=== PATIENT | female | born 1970 | race Caucasian/White ===

== ENCOUNTER 2019-06-11 15:10 | Emergency (ER) | payer OTHER ==
[~2019-06-11] VITALS: Ht 167.6 cm; Wt 90.7 kg
--- OUTSIDE RECORDS SUMMARY | ~2019-06-11 | XMS | Encounter Summary ---
Demographics + + + | Address | [address] | | | [place] [address] | + + + | Home Phone | | + + + | Preferred Language | Unknown | + + + | Marital Status | | + + + | Restoration Affiliation | Unknown | + + + | Race | White | + + + | Ethnic Group | Not or | + + + Author + + + | Author | [facility] | + + + | Organization | [facility] | + + + | Address | Unknown | + + + | Phone | Unavailable | + + + Support + + +---------+ + | Name | Relationship | Address | Phone | + + +---------+ + | Vinicio Garcia | ECON | Unknown | | + + +---------+ + Care Team Providers + +------+ + | Care Dental Amalgam Processor Name | Role | Phone | + +------+ + | Kenneth Duncan DO | PCP | | + +------+ + Reason for Visit + + + | Reason | Comments | + + + | Fibromyalgia | | + + + | TPI - Trigger point | | | injection | | + + + Consultation (Routine) +--------+--------+ + + + + | Status | Reason | Specialty | Diagnoses / | Referred By | Referred To | | | | | Procedures | Contact | Contact | +--------+--------+ + + + + | Closed | | Rheumatology | | Perla, | Venkatesh | | | | | | DO Kenneth | Paulina | | | | | | [address] | [address] | | | | | | [place], | [place] | | | | | | [place] | [place] | | | | | | [address] | Mailcode: | | | | | | Phone: | [address]35 | | | | | | [phone] | Physician's | | | | | | Fax: | Pavilion | | | | | | [phone] | [place], [place] | | | | | | | [address] | | | | | | | Phone: | | | | | | | [phone] | | | | | | | Fax: | | | | | | | [phone] | +--------+--------+ + + + + Encounter Details +--------+---------+ + + + | Date | Type | Department | Care Team | Description | +--------+---------+ + + + | 11/06/ | Office | Rheumatology at | [facility] | Fibromyalgia | | 2013 | Visit | [facility] | Ward, [employer] 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 [address] | (Primary Dx); Muscle | | | | [address] | [address] | spasm; Chronic knee | | | | [place] Mailcode: | [place], [place] | pain | | | | [address] [facility] | [address] | | | | | [facility], [address] | [phone] | | | | | [place], [place] | | | | | | [address] | | | | | | [phone] | | | +--------+---------+ + + + Social History + +-------+ +--------+------+ | Tobacco Use | Types | Packs/Day | Years | Date | | | | | Used | | + +-------+ +--------+------+ | Never Smoker | | | | | + +-------+ +--------+------+ + + +---------+ + | Alcohol Use | Drinks/Week | oz/Week | Comments | + + +---------+ + | Not Asked | | | | + + +---------+ + + + + | Sex Assigned at | Date Recorded | | | | + + + | Not on file | | + + + + + + + | Job Start Date | Occupation | Industry | + + + + | Not on file | Not on file | Not on file | + + + + + + + + | Travel History | Travel Start | Travel End | + + + + + + | No recent travel history available. | + + documented as of this encounter Last Filed Vital Signs + + + + + | Vital Sign | Reading | Time Taken | Comments | + + + + + | Blood Pressure | 116/64 | 11/06/2012 10:58 AM | | | | | PDT | | + + + + + | Pulse | 82 | 11/06/2012 10:58 AM | | | | | PDT | | + + + + + | Temperature | - | - | | + + + + + | Respiratory Rate | - | - | | + + + + + | Oxygen Saturation | - | - | | + + + + + | Inhaled Oxygen | - | - | | | Concentration | | | | + + + + + | Weight | 122.9 kg (271 lb) | 11/06/2012 10:58 AM | | | | | PDT | | + + + + + | Height | 167.6 cm (5' 6") | 11/06/2012 10:58 AM | | | | | PDT | | + + + + + | Body Mass Index | 43.74 | 11/06/2012 10:58 AM | | | | | PDT | | + + + + + documented in this encounter Progress Notes Mayda Dior - 11/06/2012 11:15 AM PDTFormatting of this note might be differen t from the original. Progress Note Clinic: Rheumatology Reason for follow-up: Chief Complaint Patient presents with Fibromyalgia TPI - Trigger point injection Ms. Garcia was last seen September 28, 2011. She returns today for trigger point injections. She notes an increase in her knee pain and dysfunction. Past Medical History: Past Medical History Diagnosis Date Morbid obesity Melanoma Right arm with region lymph dissection 2006 PUD (peptic ulcer disease) Treated for H. Pylori DJD (degenerative joint disease) of knee Completed Synvisc injections Chronic headaches Myalgia Medications: Current Outpatient Prescriptions Medication Sig Cholecalciferol, Vitamin D3, (VITAMIN D3) 5,000 unit Oral tablet Take 5,000 Units by [facility] once daily. cyclobenzaprine 5 mg Oral tablet Take 5 mg by mouth two times daily. Do not use longer than 2-3 weeks. FIBER ORAL Take by mouth. GLUCOSAMINE/CHONDROITIN SULF A (GLUCOSAMINE-CHONDROITIN ORAL) Take by mouth. LYSINE ORAL Take by mouth. meloxicam 15 mg Oral tablet Take 15 mg by mouth once daily. pramipexole 0.125 mg Oral tablet Take 0.125 mg by mouth two times daily. traMADol 50 mg Oral tablet Take 50 mg by mouth two times daily. Allergies: Review of patient's allergies indicates no known allergies. Social History: Gabriel reports that she has never smoked. She does not have any smokeless tobacco history on file. She reports that she does not use illicit drugs. Family History: family history includes Arthritis in her father and mother; Cancer in her m other; Diabetes in her mother; Heart Disease in her father; Hypertension in her father; and Psychiatry in her mother. Physical Exam: BP 116/64 | Pulse 82 | Ht 1.676 m (5' 6") | Wt 122.925 kg (271 lb) | BMI 43.74 kg/(m^2) Keily n Score: 8 Rapid 3 MHAQ: 5.7 (11/06/12 1800) PAIN LEVEL: 8 (11/06/12 1800) GLOBAL ASSESSMENT: 5 (11/06/12 1800) RAPID 3: 6.23 (11/06/12 1800) Gen: Obese, NAD M/S: 6 jump points identified in the trapezii Skin: no abnormalities Neuro: normal Impression: This is a 42 y.o. female here for follow up of fibromyalgia and muscle spasm. Additional issues discussed today chronic bilateral knee pain. Functional Assessment: [facility] 09/28/2011 11/06/2012 RAPID 3 7.1 6.23 Recommendations: 1. Informed consent obtained verbally. Patient understands potential risks and benefits. 6 regions of the trapezius were injected today each with lidocaine 1% and cyanocobalamin 1.25 ml of solution was injected into each region- 3 regions on the right and 3 on the left. The injections were well tolerated with minimal bleeding. Clean bandages were applied and a war m pack was provided for the patient to use on the trip home. Her daughter was present during the procedure and is driving her home. Post-injection instructions were detailed with deni bee. She will contact me later this week through [employer] and let me know how she is doing. 2. Ms. Garcia informs me she will be seeing an orthopedist later this month for follow-up o n her chronic knee pain. She claims she was told 10 years ago she needed knee replacement a nd now feels she is ready to proceed. I encouraged her to seek a second opinion given her r elatively young age for joint replacement but did inform her effectively treating peripheral pain generators can have a tremendous impact on fibromyalgia pain by lowering the total keily n burden. We also discussed treatment options in the interim including: Lidocaine 5% patch es and topical compounded formulations (ketoprofen 10% compounded with ketamine 10% in a PLO gel for BID-TID application 60gms). 3. Return to clinic as indicated by efficacy of today's injections. [facility] [facility] Mailcode: [address] [facility] [address] [facility] [place] [address] documented in th is encounter Plan of Treatment Not on filedocumented as of this encounter Procedures + +--------+ + + + | Procedure Name | Priori | Date/Time | Associated Diagnosis | Comments | | | ty | | | | + +--------+ + + + | AK INJECT TRIGGER | Routin | 11/06/2012 | Fibromyalgia | | | POINT, 1 OR 2 | e | 12:11 PM | | | | | | PDT | | | + +--------+ + + + documented in this encounter Visit Diagnoses + + | Diagnosis | + + | Fibromyalgia - Primary Mylagia and myositis, unspecified | + + | Muscle spasm Spasm of muscle | + + | Chronic knee pain Pain in joint, lower leg | + + documented in this encounter
--- OUTSIDE RECORDS SUMMARY | ~2019-06-11 | XMS | Encounter Summary ---
Demographics + + + | Address | [address] | | | [place] [address] | + + + | Home Phone | | + + + | Preferred Language | Unknown | + + + | Marital Status | | + + + | Evangelical Affiliation | 1061 | + + + | Race | Unknown | + + + | Ethnic Group | Unknown | + + + Author + + + | Author | [facility] | | | and [place] | + + + | Organization | [facility] | | | and [place] | + + + | Address | Unknown | + + + | Phone | Unavailable | + + + Support + + +---------+ + | Name | Relationship | Address | Phone | + + +---------+ + | Vinicio Garcia | ECON | Unknown | | + + +---------+ + Care Team Providers + +------+ + | Care C Unix Developer Name | Role | Phone | + +------+ + | Kenneth Duncan DO | PCP | | + +------+ + Reason for Visit + + + | Reason | Comments | + + + | Medication Prior | Lyrica 25mg | | Authorization | | + + + | Medication Prior | Pt has question about prior auth | | Authorization | | + + + Encounter Details +--------+ + + + + | Date | Type | Department | Care Team | Description | +--------+ + + + + | 03/01/ | Telephone | [facility] | Kenneth Duncan | Medication Prior | | 2017 | | [facility] | E, DO [address] | Authorization | | | | MEDICAL [facility] [address] | [place], [place] | (Lyrica 25mg ); | | | | [address] [place], | [address] | Medication Prior | | | | [place] [address] | [phone] | Authorization (Pt | | | | [phone] | | has question about | | | | | | prior auth) | +--------+ + + + + Social History + +-------+ +--------+------+ | Tobacco Use | Types | Packs/Day | Years | Date | | | | | Used | | + +-------+ +--------+------+ | Never Smoker | | | | | + +-------+ +--------+------+ + +---+---+---+ | Smokeless Tobacco: | | | | | Never Used | | | | + +---+---+---+ + + +---------+ + | Alcohol Use | Drinks/Week | oz/Week | Comments | + + +---------+ + | No | | | | + + +---------+ + + + + | Sex Assigned at | Date Recorded | | | | + + + | Female | | + + + + + [...] + + documented as of this encounter Plan of Treatment Not on filedocumented as of this encounter Visit Diagnoses Not on filedocumented in this encounter"
--- OUTSIDE RECORDS SUMMARY | ~2019-06-11 | XMS | Encounter Summary ---
Demographics + + + | Address | [address] | | | [place] [address] | + + + | Home Phone | | + + + | Preferred Language | Unknown | + + + | Marital Status | | + + + | Rastafari Affiliation | 1061 | + + + | Race | Unknown | + + + | Ethnic Group | Unknown | + + + Author + + + | Author | [facility] | | | and [place] | + + + | Organization | [facility] | | | and [place] [...] Team Providers + +------+ + | Care Die Equipment Operator Name | Role | Phone | + +------+ + | Kenneth Duncan DO | PCP | | + +------+ + Encounter Details +--------+ + + + + | Date | Type | Department | Care Team | Description | +--------+ + + + + | 02/22/ | Abstract | [facility] | Kenneth Duncan | | | 2018 | | [facility] | E, DO [address] | | | | | MEDICAL CL[facility] [address] | [place], [place] | | | | | [address] [place], | [address] | | | | | [place] [address] | [phone] | | | | | [phone] | | | +--------+ + + + + Social [...] | + +--------+ + + + | EXTERNAL LAB: | Routin | 12/22/2016 | | Results for this | | HEMOGLOBIN A1C | e | | | procedure are in the | | | | | | results section. | + +--------+ + + + documented in this encounter Results External Lab: Hemoglobin A1c (12/22/2016) + +-------+ + + + | Component | Value | Ref Range | Performed | Pathologist | | | | | At | Signature | + +-------+ + + + | Hemoglobin | 5.6 | % | | | | A1c, | | | | | | external | | | | | + +-------+ + + + + + | Specimen | + + | Blood | + + documented in this encounter Visit Diagnoses Not on filedocumented in this encounter"
--- OUTSIDE RECORDS SUMMARY | ~2019-06-11 | XMS | Encounter Summary ---
Demographics + + + | Address | [address] | | | [place] [address] | + + + | Home Phone | | + + + | Preferred Language | Unknown | + + + | Marital Status | | + + + | Hoahaoism Affiliation | 1061 | + + + | Race | Unknown | + + + | Ethnic Group | Unknown | + + + Author + + + | Author | [facility] | | | and [place] | + + + | Organization | [facility] | | | and [...] Team Providers + +------+ + | Care Procurement Analyst Name | Role | Phone | + +------+ + | Kenneth Duncan DO | PCP | | + +------+ + Reason for Visit + + + | Reason | Comments | + + + | Medication Refill | | + + + | Medication Refill | | + + + Encounter Details +--------+--------+ + + + | Date | Type | Department | Care Team | Description | +--------+--------+ + + + | 03/14/ | Refill | [facility] | Kenneth Duncan | Medication Refill; | | 2018 | | [facility] | E, DO [address] | Medication Refill | | | | MEDICAL [facility] [address] | [place], [place] | | | | | [address] [place], | [address] | | | | | [place] [address] | [phone] | | | | | [phone] | | | +--------+--------+ + + + Social History + +-------+ [...] filedocumented as of this encounter Visit Diagnoses + + | Diagnosis | + + | Hypoglycemia Hypoglycemia, unspecified | + + documented in this encounter"
--- OUTSIDE RECORDS SUMMARY | ~2019-06-11 | XMS | Encounter Summary ---
Demographics + + + | Address | [address] | | | [place] [address] | + + + | Home Phone | | + + + | Preferred Language | Unknown | + + + | Marital Status | | + + + | Church Affiliation | 1061 | + + + | Race | Unknown | + + + | Ethnic Group | Unknown | + + + Author + + + | Author | [facility] | | | and [place] | + + + | Organization | [facility] | | | and [place] [...] Team Providers + +------+ + | Care Gate Person Name | Role | Phone | + +------+ + PCP | Unavailable | + +------+ + Encounter Details +--------+ + + + + | Date | Type | Department | Care Team | Description | +--------+ + + + + | 09/06/ | Hospital | [facility] | | | | 1998 | Encounter | [facility] | | | | | | [facility] [address] | | | | | | [place] | | | | | | [address] | | | | | | [phone] | | | +--------+ + + + + Social History + +-------+ +--------+------+ | Tobacco Use | Types | Packs/Day | Years | Date | | | | | Used | | + +-------+ +--------+------+ | Never Assessed | | | | | + +-------+ +--------+------+ + + + | Sex Assigned at [...]
--- OUTSIDE RECORDS SUMMARY | ~2019-06-11 | XMS | Encounter Summary ---
Demographics + + + | Address | [address] | | | [place] [address] | + + + | Home Phone | | + + + | Preferred Language | Unknown | + + + | Marital Status | | + + + | Zoroastrian Affiliation | 1061 | + + + | Race | Unknown | + + + | Ethnic Group | Unknown | + + + Author + + + | Author | [facility] | | | and [place] | + + + | Organization | [facility] | | | and [place] | [...] Team Providers + +------+ + | Care It Help Desk Technician Name | Role | Phone | + [...] | | | | | [address] [place], | [address] | | | | | [place] [address] | [phone] | | | | | [phone] | | | +--------+ + + + [...]
--- OUTSIDE RECORDS SUMMARY | ~2019-06-11 | XMS | Encounter Summary ---
Demographics + + + | Address | [address] | | | [place] [address] | + + + | Home Phone | | + + + | Preferred Language | Unknown | + + + | Marital Status | | + + + | Anabaptism Affiliation | 1061 | + + + | Race | Unknown | + + + | Ethnic Group | Unknown | + + + Author + + + | Author | [facility] | | | and [place] | + + + | Organization | [facility] | | | and [...] Team Providers + +------+ + | Care Foreman Shipping Department Name | Role | Phone | + +------+ + | Kenneth Duncan DO | PCP | | + +------+ + Reason for Visit + + + | Reason | Comments | + + + | Medication Prior | Lyrica 25 mg | | Authorization | | + + + Encounter Details +--------+ + + + + | Date | Type | Department | Care Team | Description | +--------+ + + + + | 04/10/ | Telephone | [facility] | Kenneth Duncan | Medication Prior | | 2018 | | [facility] | E, DO [address] | Authorization | | | | MEDICAL CLINIC [address] | [place], [place] | (Lyrica 25 mg ) | | | | [address] [place], | [address] | | | | | [place] [address] | [phone] | | | | | [phone] | | | +--------+ + + + [...]
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
--- OUTSIDE RECORDS SUMMARY | ~2019-06-11 | XMS | Encounter Summary ---
Demographics + + + | Address | [address] | | | [place] [address] | + + + | Home Phone | | + + + | Preferred Language | Unknown | + + + | Marital Status | | + + + | Lutheran Affiliation | Unknown | + + + | Race | White | + + + | Ethnic Group | Not or | + + + Author + + + | Organization | Unknown | + + + | Address | Unknown | + + + | Phone | Unavailable | + + + Support + + +---------+ + | Name | Relationship | Address | Phone | + + +---------+ + | Vinicio Garcia | ECON | Unknown | | + + +---------+ + Care Team Providers + +------+ + | Care Receiver Dispatcher Name | Role | Phone | + +------+ + PCP | Unavailable | + +------+ + Encounter Details +--------+ + + + + | Date | Type | Department | Care Team | Description | +--------+ + + + + | 04/02/ | Office | | Report, Outpatient | Progress Note | | 2004 | Visit-Trans | | Consultation | | | | cribed | | | | +--------+ + + + [...] + + documented as of this encounter Progress Notes Interface, Services Clerk In - 01/31/2005 8:35 AM PDT [id number] 04/02/2004 04/02/2004 [id number] DON Barragan Referred From and Faxed To: Alejandro Duncan M.D. Referred To: General surgery outpatient consultation. Consulting Physician: Derik Avila Consultation Date: 04/02/2004 Chief Complaint: Not dictated. Reason for Requested Consultation: The patient is referred to [facility] Department of Surgery for discussion of bariatric surgery. Her weight is 260 pounds, height of 5'6.75" tall for a BMI of 42. Consultation Findings and Recommendations: History of Present Illness: The patient first felt that she was overweight at approximately age 22 when she weight 170 pounds. She had dieted intermittently during her high school years, but in general was of normal weight until 1989. At that time she went to [facility] for six months and was able to lose approximately 25 pounds. Over time that weight was gradually regained and in 1999 she began doing water aerobics as a weight loss attempt. She also participated in the Weigh Down Program in 2001 and was able to lose about 34 pounds over three months. However, she was able to maintain that for two to three months before she regained it all. She has also participated with a dietitian for six months for a weight loss of 12 pounds, but was unable to again to maintain it for more than three months. She has intermittently used both Atkins and Slim Fast diet as well as Dexatrim, but denies any combination of phentermine-phenformin or Redux, but was on phentermine by itself along with a thyroid hormone replacement. Her obesity is associated with gastroesophageal reflux disease, hyperlipidemia, stress urinary incontinence, knee pain and lower back pain. Past Surgical History: 1. Bilateral myringotomies 1974. 2. Appendectomy 1983. 3. Reconstruction of nose 1983. 4. section 1996. Current Medications: 1. Zantac 150 mg b.i.d. 2. Ibuprofen 800 mg b.i.d. Allergies: No known drug allergies. 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 She has five children under the age of 17. She is and reports her to be supportive of her decision to proceed with surgery. She also has friends who liver nearby who will help her with the care of her children during her recovery. Habits: She has regular caffeine intake. She denies any recreational drug use. She has no history of smoking and rare alcohol consumption. Family History: Significant for father with hypertension and ulcer disease. Mother with diabetes, obesity, breast and ovarian cancer. Sister with obesity and reflux disease. Her five children, ages 17, 17, 15, 10 and 7 are all well. Review of Systems: Neurologic: She does have occasional headaches that respond to rest. She has also noted some numbness in her lower extremities, but appears to be positional, but persistent. Respiratory: She denies any history of asthma, pneumonia. She occasionally snores at night, but awakens feeling refreshed. Cardiac: She has no chest pain or chest pressure. No history of heart murmur, deep vein thrombosis or pulmonary emboli. No history of hypertension, but she has had elevated cholesterol and triglycerides. GI: She has recurrent gastroesophageal reflux disease for which she takes over the counter Zantac. She also has a remote history of gastric ulcer, but has not had any studies done recently. Bowel movements are regular; stools are without blood or melena. Genitourinary: Menstrual cycle is regular. Her has had a vasectomy as their control method. She acknowledges stress urinary incontinence. Dermatologic: She denies any intertriginous skin infections. Endocrine: No history of diabetes or gestational diabetes. Family history as noted above to be positive. Musculoskeletal: She has had knee swelling, particularly the right knee. Also severe hip and lower back pain. She relates this to her most recent gain as having worsened her discomfort. Objective: Pleasant 34-year-old woman in no distress. Weight is 260 pounds, height of 5'6.75 inches tall, BMI is 42, blood pressure 106/72, heart rate is 82. Lungs: Clear to auscultation. Cardiac: No murmurs, rubs, gallops or bruits are noted. Abdomen: Obese, soft without evidence of scarring. Positive Kim's sign. No masses palpated. HEENT: Pharynx is pink, moist without evidence of lesions. No paracervical lymphadenopathy. Thyroid is nonpalpable. Neurologic: EOMs are intact. Cranial nerves II-XII are intact. Upper extremity sock drier are equal and full bilaterally. Deep tendon reflexes are 2+ in the biceps and patella. Abdominal ultrasound results from 01/21/99 shows a 5mm in diameter active peptic ulcer crater in the duodenal bulb. Study was repeated on 03/24/99 indicating a lack of a discreet crater on upper GI. Most recent lab results from last year for 2002 were unremarkable. CBC and chem profile, with the exception of a cholesterol of 281 and an LDL of 206 for a cholesterol HDL ratio of 6.2. Impression and Plan: The patient meets and exceeds the NIH criteria for morbid obesity. Her obesity is associated with multiple comorbidities including gastroesophageal reflux disease, hyperlipidemia, stress urinary incontinence, knee, back and hip pain. Furthermore she has family history of hypertension, hyperlipidemia and diabetes. She has made several attempts to lose weight and in fact recently has lost ten pounds in order to prepare for surgical intervention. Unfortunately her weight loss efforts in the past have been unsustainable. Will request authorization from her insurance provider for a laparoscopic gastric bypass to be done by Donn Westfall M.D. at [facility]. In addition, prior to her surgery, it is recommended that she have an abdominal ultrasound to rule out cholelithiasis given her positive Kim sign on examination today and an EGD given her history of ulcer disease. The patient is agreeable with the above and will have the ultrasound done today, scheduling EGD through her primary card provider's office in the near future. Plan: 1. Abdominal ultrasound. 2. Patient to get updated lab tests done in the next couple of weeks with her primary care provider. 3. Schedule EGD through her primary care provider. 4. Patient will have a nutritional consult following authorization for the procedure. 5. She will arrange for a psychological evaluation in her local area. 6. The patient will contact our office if she has any questions or concerns. Derik Avila SS/[id number] P [phone] cc: Alejandro Duncan M.D. [address] [place], [place] [address] documented i n this encounter Plan of Treatment Not on filedocumented as of this encounter Visit Diagnoses Not on filedocumented in this encounter
--- OUTSIDE RECORDS SUMMARY | ~2019-06-11 | XMS | Encounter Summary ---
Demographics + + + | Address | [address] | | | [place] [address] | + + + | Home Phone | | + + + | Preferred Language | Unknown | + + + | Marital Status | | + + + | Hoahaoism Affiliation | Unknown | + + + | Race | White | + + + | Ethnic Group | Not or | + + + Author + + + | Author | [facility] | + + + | Organization | [facility] | + + + | Address | Unknown | + + + | Phone | Unavailable | + + + Support + + +---------+ + | Name | Relationship | Address | Phone | + + +---------+ + | Vinicio Garcia | ECON | Unknown | | + + +---------+ + Care Team Providers + +------+ + | Care Sponsorship Coordinator Name | Role | Phone | + +------+ + PCP | Unavailable | + +------+ + Encounter Details +--------+ + + + + | Date | Type | Department | Care Team | Description | +--------+ + + + + | 07/31/ | Results | [facility] | Nikolas, | | | 2009 | Only | Department | MD Cayden Payne | | | | | | [facility] | | | | | | [address] | | | | | | [address] | | | | | | [place], [place] | | | | | | [id number] | | | | | | | | +--------+ + + [...] | + +--------+ + + + | DERMATOPATHOLOGY(CON | Routin | 07/31/2009 | | Results for this | | SULT) | e | | | procedure are in the | | | | | | results section. | + +--------+ + + + documented in this encounter Results DERMATOPATHOLOGY(CONSULT) (07/31/2009) + + + + + + | Component | Value | Ref Range | Performed | Pathologist | | | | | At | Signature | + + + + + + | DERMATOPATH | SOURCE OF SPECIMEN:A | | [facility] | | | (CONSULT) | CONSULTATION | | DERMATOPATH | | | | CLINICAL | | OLOGY | | | | DESCRIPTION:Lt Sarah. | | | | | | upper arm, 7x4mm opaque | | | | | | erythematous firm pap, | | | | | | R/Odermatofibroma.1 | | | | | | outside slide | | | | | | ([id number]) received. | | | | | | Dear | | | | | | Di: | | | | | | Thank you for | | | | | | asking us to review | | | | | | Gabriel Garcia's left | | | | | | upper armbiopsy. As you | | | | | | indicated, there is a | | | | | | small papule | | | | | | characterized by | | | | | | aspindle cell | | | | | | proliferation in the | | | | | | upper dermis. The | | | | | | spindled nuclei areplump | | | | | | and uniform and the | | | | | | cells have eosinophilic | | | | | | cytoplasm | | | | | | formingfascicles | | | | | | interweaving haphazardly | | | | | | and in storiform | | | | | | configuration. There | | | | | | isperipheral keloidal | | | | | | collagen as well as | | | | | | epidermal hyperplasia | | | | | | withhyperpigmentation | | | | | | along the basal layer. | | | | | | | | | | | | DIAGNOSIS:DERMATOFIBROMA | | | | | | . The | | | | | | dermatofibroma extends | | | | | | to the surgical margins. | | | | | | Thank you for | | | | | | referring this | | | | | | consultation.1 slide | | | | | | ([id number]) returned to | | | | | | Dr. Sevilla. | | | | | | CRW:emr08/08/09 My | | | | | | electronic signature | | | | | | indicates that I have | | | | | | personally reviewed | | | | | | alldiagnostic slides, | | | | | | the gross and/or | | | | | | microscopic portion of | | | | | | thisreport and | | | | | | formulated the final | | | | | | diagnosis. | | | | | | Rendering Diagnostician: | | | | | | Osvaldo Mauricio Jr., | | | | | | | | | | | | TrinyPathologistElectroni | | | | | | jero Signed 08/08/2009 | | | | + + + + + + + + | Specimen | + + | Other | + + + + + + + | Performing | Address | City/State/Zipcode | Phone Number | | Organization | | | | + + + + + | [facility] | [address] | [place] [address] | | | DERMATOPATHOLOGY | [address] | | | + + + + + documented in this encounter Visit Diagnoses Not on filedocumented in this encounter"
--- OUTSIDE RECORDS SUMMARY | ~2019-06-11 | XMS | Encounter Summary ---
Demographics + + + | Address | [address] | | | [place] [address] | + + + | Home Phone | | + + + | Preferred Language | Unknown | + + + | Marital Status | | + + + | Confucianist Affiliation | Unknown | + + + | Race | White | + + + | Ethnic Group | Not or | + + + Author + + + | Author | [facility] | + + + | Organization | [facility] | + + + | Address | Unknown | + + + | Phone | Unavailable | + + + Support + + +---------+ + | Name | Relationship | Address | Phone | + + +---------+ + | Vinicio Garcia | ECON | Unknown | | + + +---------+ + Care Team Providers + +------+ + | Care Soap Mixer Name | Role | Phone | + +------+ + PCP | Unavailable | + +------+ + Encounter Details +--------+ + + + + | Date | Type | Department | Care Team | Description | +--------+ + + + + | 04/02/ | Results | [facility] | Maricarmen Mukherjee, | | | 2003 | Only | [place] [address] [place] [address] | | | | | [place] | | | | | | Mailcode: [id number] | | | | | | Phys[facility]'s J[facility]en | | | | | | [place], [place] | | | | | | [address] | | | | | | [phone] | | | +--------+ + + + [...] | + +--------+ + + + | US ABDOMEN COMPLETE | Routin | 04/02/2004 | | Results for this | | | e | 1:08 PM | | procedure are in the | | | | PDT | | results section. | + +--------+ + + + documented in this encounter Results US ABDOMEN COMPLETE (04/02/2004 1:08 PM PDT) + + + + + + | Component | Value | Ref Range | Performed | Pathologist | | | | | At | Signature | + + + + + + | US ABDOMEN | Radiologist 1: JOSE MARIA, | | | | | COMPLETE | Yanira LICEA | | | | | | Triny-Radiologist 2: | | | | | | BRIAN DIXON: US | | | | | | abdomen dated 04/02/04. | | | | | | COMPARISON: No previous | | | | | | studies available for | | | | | | comparison. CLINICAL | | | | | | DATA: 34 year old female | | | | | | preoperative gastric | | | | | | bypassevaluation. | | | | | | FINDINGS: The liver is | | | | | | slightly increased in | | | | | | echo texture without | | | | | | focallesions. The | | | | | | biliary tree is within | | | | | | normal limits. The | | | | | | commonbile duct measures | | | | | | 4 mm in diameter. The | | | | | | gallbladder | | | | | | appearsnormal. No | | | | | | gall-stones or | | | | | | sonographic findings of | | | | | | acutecholecystitis are | | | | | | present. The visualized | | | | | | portions of the pancreas | | | | | | are unremarkable. | | | | | | Thetail is not well | | | | | | visualized secondary to | | | | | | overlying bowel gas. | | | | | | Thespleen appears | | | | | | unremarkable and | | | | | | measures 12.8 cm. The | | | | | | right and left kidneys | | | | | | are normal in echo | | | | | | texture and uxdfont15.5 | | | | | | and 11.8 cm, | | | | | | respectively, with no | | | | | | abnormal mass | | | | | | orhydronephrosis. The | | | | | | aorta and IVC are | | | | | | unremarkable. No | | | | | | ascites is seen. | | | | | | IMPRESSION: Negative | | | | | | ultrasound examination | | | | | | of the abdomen. | | | | + + + + + + + + | Specimen | + + | | + + + +---------+ + + | Performing | Address | City/State/Zipcode | Phone Number | | Organization | | | | + +---------+ + + | [facility] | | | | | RADIOLOGY | | | | + +---------+ + + documented in this encounter Visit Diagnoses Not on filedocumented in this encounter"
--- OUTSIDE RECORDS SUMMARY | ~2019-06-11 | XMS | Encounter Summary ---
Demographics + + + | Address | [address] | | | [place] [address] | + + + | Home Phone | | + + + | Preferred Language | Unknown | + + + | Marital Status | | + + + | Protestant Affiliation | 1061 | + + + | Race | Unknown | + + + | Ethnic Group | Unknown | + + + Author + + + | Author | [facility] | | | and [place] | + + + | Organization | [facility] | | | and [place] [...] Team Providers + +------+ + | Care Senior Policy Analyst Name | Role | Phone | + +------+ + | Kenneth Duncan DO | PCP | | + +------+ + Reason for Visit + + + | Reason | Comments | + + + | Diabetes Mellitus | Diabetes lab reminder | | Management | | + + + Encounter Details +--------+ + + + + | Date | Type | Department | Care Team | Description | +--------+ + + + + | 06/22/ | Telephone | [facility] | Kenneth Duncan | Diabetes Mellitus | | 2018 | | [facility] | E, DO [address] | Management (Diabetes | | | | [facility] [address] | [place], [place] | lab reminder) | | | | [facility] | [address] | | | | | [place] [address] | [phone] | | | | | [phone] | | | +--------+ + + + [...]
--- OUTSIDE RECORDS SUMMARY | ~2019-06-11 | XMS | Encounter Summary ---
Demographics + + + | Address | [address] | | | [place] [address] | + + + | Home Phone | | + + + | Preferred Language | Unknown | + + + | Marital Status | | + + + | Yarsanism Affiliation | 1061 | + + + | Race | Unknown | + + + | Ethnic Group | Unknown | + + + Author + + + | Author | [facility] | | | and [place] | + + + | Organization | [facility] | | | and [place] | [...] Team Providers + +------+ + | Care Auto Body Mechanic Name | Role | Phone | + +------+ + | Kenneth Duncan DO | PCP | | + +------+ + Reason for Visit + + + | Reason | Comments | + + + | Medication Prior | Lyrica 50mg | | Authorization | | + + + Encounter Details +--------+ + + + + | Date | Type | Department | Care Team | Description | +--------+ + + + + | 03/26/ | Telephone | [facility] | Kenneth Duncan | Medication Prior | | 2019 | | [facility] | E, DO [address] | Authorization | | | | [facility] [address] | [place], [place] | (Lyrica 50mg ) | | | | [address] [place], | [address] | | | | | [place] [address] | [phone] | | | | | [phone] | | | +--------+ + + + [...]
--- OUTSIDE RECORDS SUMMARY | ~2019-06-11 | XMS | Encounter Summary ---
Demographics + + + | Address | [address] | | | [place] [address] | + + + | Home Phone | | + + + | Preferred Language | Unknown | + + + | Marital Status | | + + + | Rastafarian Affiliation | 1061 | + + + | Race | Unknown | + + + | Ethnic Group | Unknown | + + + Author + + + | Author | [facility] | | | and [place] | + + + | Organization | [facility] | | | and [place] [...] Team Providers + +------+ + | Care Production Machine Shop Supervisor Name | Role | Phone | + [...] Description | +--------+--------+ + + + | 04/23/ | Refill | [facility] | Kenneth Duncan | Medication Refill | | 2018 | | [facility] | E, DO [address] | | | | | [facility] [address] | [place], [place] | | | | [address] [place], | [address] | | | | | [place] [address] | [phone] | | | | | [phone] | | | +--------+--------+ + + + [...] | + + + | Female | 04/02/2019 12:53 PM PDT | + + + + + + [...] Mylagia and myositis, unspecified | + + documented in this encounter"
--- OUTSIDE RECORDS SUMMARY | ~2019-06-11 | XMS | Clinical Summary ---
Demographics + + + | Address | [address] | | | [place] [address] | + + + | Home Phone | | + + + | Preferred Language | Unknown | + + + | Marital Status | | + + + | Congregational Affiliation | 1061 | + + + | Race | Unknown | + + + | Ethnic Group | Unknown | + + + Author + + + | Author | [facility] | | | and Jesúsana | + + + | Organization | [facility] | | | and [...] Team Providers + +------+ + | Care Hall Porter Name | Role | Phone | + +------+ + | Kenneth Duncan DO | PCP | | + +------+ + Allergies + + + + + + | Active Allergy | Reactions | Severity | Noted | Comments | | | | | Date | | + + + + + + | Gabapentin | Other (See Comments) | | 04/03/20 | Ineffective | | | | | 19 | | + + + + + + | Latex | Rash | Low | 02/23/20 | | | | | | 18 | | + + + + + + | Tramadol | Other (See Comments) | | 04/03/20 | Ineffective | | | | | 19 | | + + + + + + Medications + + + +---------+------+------+-------+ | Medication | Sig | Dispensed | Refills | Star | End | Statu | | | | | | t | Date | s | | | | | | Date | | | + + + +---------+------+------+-------+ | cholecalciferol | Take 5,000 Units by | | 0 | | | Activ | | (VITAMIN D-3) 5000 | mouth Daily. | | | | | e | | units TABS | | | | | | | + + + +---------+------+------+-------+ | Multiple | Take by mouth | | 0 | | | Activ | | Vitamins-Minerals | Daily. | | | | | e | | (MULTIVITAMIN ADULTS | | | | | | | | PO) | | | | | | | + + + +---------+------+------+-------+ | ibuprofen (ADVIL, | Take 200 mg by mouth | | 0 | | | Activ | | MOTRIN) 200 mg | as needed for Pain. | | | | | e | | tablet | Use with Tylenol, | | | | | | | | NEEDED, roughly | | | | | | | | three times per | | | | | | | | week. | | | | | | + + + +---------+------+------+-------+ | acetaminophen | Take 650 mg by mouth | | 0 | | | Activ | | (TYLENOL) 325 mg | as needed for Pain. | | | | | e | | tablet | Use with IBU, | | | | | | | | NEEDED, roughly | | | | | | | | three times per | | | | | | | | week. | | | | | | + + + +---------+------+------+-------+ | glucose blood | Use and discard one | 300 | 3 | 09/1 | | Activ | | test strips (ONE | test strip to test | each | | 2/20 | | e | | TOUCH ULTRA TEST) | blood glucose twice | | | 19 | | | | stripIndications: | daily. Dx: E11.65 | | | | | | | Hypoglycemia | | | | | | | + + + +---------+------+------+-------+ | pregabalin | Take 1 capsule by | 180 | 2 | 10/2 | | Activ | | (LYRICA) 50 MG | mouth 2 times daily. | capsule | | 1/20 | | e | | capsuleIndications: | | | | 19 | | | | Fibromyalgia | | | | | | | + + + +---------+------+------+-------+ Active Problems + + + | Problem | Noted Date | + + + | History of seizure | 04/06/2018 | + + + | Neoplasm of uncertain behavior of skin | 04/06/2018 | + + + | Chronic pain | 02/27/2018 | + + + | Left hip pain | 02/27/2018 | + + + | Iliopsoas bursitis of left hip | 02/27/2018 | + + + | Type 2 diabetes mellitus | 02/22/2018 | + + + | Dyslipidemia | 10/09/2014 | + + + | GERD (gastroesophageal reflux disease) | 10/09/2014 | + + + | Hypertension | 10/09/2014 | + + + | Osteoarthritis of hand | 10/09/2014 | + + + | History of skin cancer | 10/09/2014 | + + + | Neoplasm of unspecified behavior of bone, soft tissue, and skin | | + + + | Hemoptysis | | + + + | Diabetes mellitus type 2, uncontrolled, without complications | | + + + | Fibromyalgia | | + + + | Hyperlipidemia | | + + + | Hypoglycemia | | + + + | Osteoarthritis, knee | | + + + | RLS (restless legs syndrome) | | + + + | Scarring, keloid | | + + + | Sacroiliitis | | + + + | Headache syndrome | | + + + Resolved Problems + + + + | Problem | Noted | Resolved | | | Date | Date | + + + + | Skin neoplasm | 04/06/20 | | | | 18 | 8 | + + + + Encounters +--------+ + + + + | Date | Type | Specialty | Care Team | Description | +--------+ + + + + | 05/23/ | Telephone | Primary Care | Kenneth Duncan | Diabetes Mellitus | | 2018 | | | E, | Management (Diabetes | | | | | | Labs Reminder) | +--------+ + + + + | 04/26/ | Telephone | Primary Care | Kenneth Duncan | Insurance | | 2018 | | | E, DO | Authorization | | | | | | (Appeal letter ) | +--------+ + + + + | 04/23/ | Refill | Primary Care | Kenneth Duncan | Medication Refill | | 2018 | | | E, DO | | +--------+ + + + + | 04/06/ | Telephone | Primary Care | Kenneth Duncan | Results (Follow Up ) | | 2018 | | | E, DO | | +--------+ + + + + | 04/04/ | Telephone | Primary Care | Idris Rhodes, | Results | | 2018 | | | DNP | | +--------+ + + + + | 04/03/ | Office | Primary Care | Kenneth Duncan | Hypertension, | | 2019 | Visit | | E, DO | unspecified type | | | | | | (Primary Dx); Well | | | | | | woman exam with | | | | | | routine | | | | | | gynecological exam; | | | | | | Fibromyalgia; Skin | | | | | | abnormalities; | | | | | | Screening mammogram, | | | | | | encounter for; | | | | | | Screening for HPV | | | | | | (human | | | | | | papillomavirus); | | | | | | Nocturia; Diabetes | | | | | | mellitus type 2, | | | | | | uncontrolled, | | | | | | without | | | | | | complications (HCC); | | | | | | Hyperlipidemia, | | | | | | unspecified | | | | | | hyperlipidemia type; | | | | | | RLS (restless legs | | | | | | syndrome); Headache | | | | | | syndrome; Encounter | | | | | | for vitamin | | | | | | deficiency | | | | | | screening; History | | | | | | of melanoma | +--------+ + + + + | 03/26/ | Telephone | Primary Care | Kenneth Duncan | Medication Prior | | 2018 | | | E, DO | Authorization | | | | | | (Lyrica 50mg ) | +--------+ + + + + | 03/14/ | Refill | Primary Care | Kenneth Duncan | Medication Refill; | | 2018 | | | E, DO | Medication Refill | +--------+ + + + + | 03/13/ | Refill | Primary Care | Kenneth Duncan | Medication Refill | | 2018 | | | E, DO | | +--------+ + + + + from Last 3 Months Family History + + +------+ + | Medical History | Relation | Name | Comments | + + +------+ + | Hypertension | Father | | | + + +------+ + | Other (see comment) | Father | | at age 69 of hypoglyceemia due to | | | | | insulin | + + +------+ + | Cancer | Mother | | breast, ovarian and neck | + + +------+ + | Diabetes | Mother | | | + + +------+ + | Diabetes | Paternal | | | | | Grandmoth | | | | | er | | | + + +------+ + | Hypertension | Paternal | | | | | Grandmoth | | | | | er | | | + + +------+ + + +------+ + + | Relation | Name | Status | Comments | + +------+ + + | Father | | | | + +------+ + + | Mother | | | | + +------+ + + | Paternal Grandmother | | | | + +------+ + + Social History + +-------+ +--------+------+ [...] recent travel history available. | + + Last Filed Vital Signs + + + + + | Vital Sign | Reading | Time Taken | Comments | + + + + + | Blood Pressure | 122/60 | 04/03/2019 1:56 PM | | | | | PDT | | + + + + + | Pulse | 70 | 04/03/2019 1:56 PM | | | | | PDT | | + + + + + | Temperature | 36.7 C (98.1 F) | 04/03/2019 1:56 PM | | | | | PDT | | + + + + + | Respiratory Rate | 16 | 04/03/2019 1:56 PM | | | | | PDT | | + + + + + | Oxygen Saturation | 98% | 04/03/2019 1:56 PM | | | | | PDT | | + + + + + | Inhaled Oxygen | - | - | | | Concentration | | | | + + + + + | Weight | 91.6 kg (202 lb) | 04/03/2019 1:56 PM | | | | | PDT | | + + + + + | Height | 168.9 cm (5' 6.5") | 04/03/2019 1:56 PM | | | | | PDT | | + + + + + | Body Mass Index | 32.12 | 04/03/2019 1:56 PM | | | | | PDT | | + + + + + Plan of Treatment + + + + + | Health Maintenance | Due Date | Last Done | Comments | + + + + + | Vaccine: | | | | | Pneumococcal 19-64 | 4 | | | | (1 of 1 - PPSV23) | | | | + + + + + | Diabetic Foot Exam | | | | | | 6 | | | + + + + + | Vaccine: | | | | | Dtap/Tdap/Td (1 - | 7 | | | | Tdap) | | | | + + + + + | Breast Cancer | | | | | Screening | 3 | | | + + + + + | Hemoglobin A1c | | 12/22/2016 | | | Screening | 7 | | | + + + + + | Colorectal Cancer | | | | | Screening | 8 | | | | (Colonoscopy) | | | | + + + + + | Vaccine: Zoster (1 | | | | | of 2) | 8 | | | + + + + + | Microalbumin | | | | | Screening | 8 | | | + + + + + | Statin Therapy | | | | | (optimal intensity) | 8 | | | + + + + + | Vaccine: Influenza | | | | | (#1) | 9 | | | + + + + + | Diabetic Eye Exam | | 02/01/2018 | | | | 0 | | | + + + + + | Primary Care | | 04/03/2019, 04/06/2018, | | | Outreach (Low Risk) | 1 | 02/27/2018 | | + + + + + | Cervical Cancer | | 04/03/2019 | | | Screening (Pap) | 4 | | | + + + + + Procedures + +--------+ + + + | Procedure Name | Priori | Date/Time | Associated Diagnosis | Comments | | | ty | | | | + +--------+ + + + | URINALYSIS WITH | Routin | 04/03/2019 | Well woman exam | Results for this | | MICROSCOPIC WITH | e | 4:00 PM | with routine | procedure are in the | | CULTURE IF INDICATED | | PDT | gynecological exam | results section. | | | | | Fibromyalgia | | | | | | Nocturia Diabetes | | | | | | mellitus type 2, | | | | | | uncontrolled, | | | | | | without | | | | | | complications (HCC) | | | | | | Hypertension, | | | | | | unspecified type | | + +--------+ + + + | PAP SMEAR | Routin | 04/03/2019 | | Results for this | | | e | 12:00 AM | | procedure are in the | | | | PDT | | results section. | + +--------+ + + + from Last 3 Months Results Urinalysis with Microscopic with Culture if Indicated (04/03/2019 4:00 PM PDT) + + + + + + | Component | Value | Ref Range | Performed | Pathologist | | | | | At | Signature | + + + + + + | Color | Yellow | Pale Yellow, | [facility] | | | | | Yellow | [facility] | [facility] | | + + + + + + | Clarity | Clear | Clear | [facility] | | | | | | [facility] | | + + + + + + | pH, Urine | 7.0 | 5.0 - 7.0 | [facility] | | | | | | [facility] | | | | [facility] | | + + + + + + | Specific | 1.005 | 1.003 - 1.030 | [facility] | | | [place] | | | [facility] | [facility] | | + + + + + + | Protein, | Negative | Negative | [facility] | | | Urine | | | [facility] | | | | [facility] | | + + + + + + | Blood, | Negative | Negative | [facility] | | | Urine | | | [facility] | [facility] | | + + + + + + | Glucose, | Normal | Normal | [facility] | | | Urine | | | [facility] | [facility] | | [facility] | | + + + + + + | Ketones, | Negative | Negative | [facility] | | | Urine | | | [facility] | [facility] | [facility] | | + + + + + + | Bilirubin, | Negative | Negative | [facility] | | | Urine | | | [facility] | [facility] | | + + + + + + | Nitrite, | Negative | Negative | [facility] | | | Urine | | | [facility] | [facility] | | [facility] | | + + + + + + | Leukocyte | Negative | Negative | [facility] | | | Esterase, | | | [facility] | | | | | | [facility] | | + + + + + + | Urobilinoge | Normal | 0-1.0 mg/dL | [facility] | | | n, Urine | | | [facility] | [facility] | | | | | | [facility] | | + + + + + + | WBC UA | 0-2 | <=5 /HPF | [facility] | | | | | | [facility] | | | | [facility] | | + + + + + + | RBC UA | None Seen | <=5 /HPF | [facility] | | | | | | [facility] | [facility] | | [facility] | | + + + + + + | SQUAMOUS | None Seen | None Seen /LPF | [facility] | | | EPITHELIAL | | | [facility] | | | | | | [facility] | | + + + + + + | BACTERIA UA | Trace (A) | None Seen /HPF | [facility] | | | | | | [facility] | [facility] | | | | | | [facility] | | + + + + + + | URINE | Urine Culture Not | | [facility] | | | COMMENT | Indicated | | [facility] | | | [facility] | | + + + + + + + + | Specimen | + + | Urine - Urine | | specimen obtained by | | clean catch | | procedure (specimen) | + + + + + + + | Performing | Address | City/State/Zipcode | Phone Number | | Organization | | | | + + + + + | [facility] | [address] | [place] [address] | [phone] | | [facility] | | | | + + + + + Pap Smear (04/03/2019 12:00 AM PDT) + + | Specimen | + + | | + + + + + | Narrative | Performed At | + + + | ORDERING PHYSICIAN: Kenneth Duncan DO PATIENT NAME: | [facility] | | Gabriel GARCIA GENDER: F : 1970 Prior | [facility] | | History: No cases found. SPECIMEN(S): Cervical/ Endocervical | | | CLINICAL HISTORY: Routine Pap Smear CYTOLOGIC INTERPRETATION: | | | Negative for intraepithelial lesion or malignancy. TECHNICAL | | | NOTES: To improve disease detection, this slide is screened using | | | automated intelligence technology. This specimen was received in a | | | vial of liquid-based fixative and was processed using thin layer Pap | | | technology. SPECIMEN ADEQUACY: Satisfactory for evaluation. | | | Endocervical and/or metaplastic are not identified. The patient's | | | menopausal status is noted. Samples from postmenopausal women with | | | an intact cervix often lack an endocervical component in pap | | | collections. Studies suggest there is no reason to advise women with a | | | normal Pap test without an endocervical component to undergo an | | | additional test merely to collect endocervical cells, (Am J Clin | | | Patho 2002;117(1) :199-7), unless clinically indicated. ADDITIONAL | | | NOTES: The Pap smear is a screening test designed to aid in the | | | detection of premalignant and malignant conditions of the uterine | | | cervix. It is not a diagnostic procedure and should not be used as the | | | sole means of detecting cervical cancer. Both false-positive and | | | false-negative reports do occur. This document contains private | | | and confidential health information by state and federal law. If you | | | have received in error, please call [phone]. PERFORMING | | | LABORATORY: Technical preparation was performed by [employer] | | | [facility], [address] [place] [address] | | | (Coppersmith Apprentice: Aristeo Leroy D.O.; [facility]#: [id number]). | | | Diagnostician: Paulo VILLALBA([facility]) [employer] Coater Electronically | | | Signed 04/06/2019 | | + + + + +---------+ + + | Performing | Address | City/State/[facility] | Phone Number | | Organization | | | | + +---------+ + + | [facility] | | | | | [facility] | | | | + +---------+ + + from Last 3 Months Insurance + +--------+ +--------+ +---------+--------+ | Payer | Benefi | Subscriber | Effect | Phone | Address | Type | | | t Plan | ID | radhika | | | | | | / | | Dates | | | | | | Group | | | | | | + +--------+ +--------+ +---------+--------+ | [employer] | [employer] | [id number] | | [phone] | | Medica | | MEDICAID HMO | HEALTH | | 019-Pr | 1 | | id | | | MDCD | | esent | | | | | | [place] | | | | | | + +--------+ +--------+ +---------+--------+ + +--------+ +--------+ + + | Guarantor Name | Accoun | Relation to | Date | Phone | Billing Address | | | t Type | Patient | of | | | | | | | | | | + +--------+ +--------+ + + | Gabriel Garcia | Person | Self [birth year] | [address] | | | al/Fam | | 1970 | [phone] | [place] [address] | | | jayson | | | 8 (Home) | | + +--------+ +--------+ + + Advance Directives + + + + + | Type | Date Recorded | Patient | Explanation | | | | Staff Air Defense Officer | | + + + + + | Power of | | | | | Hot Strip Mill Inspector | | | | + + + + + | Advance | 02/27/2018 2:13 | | | | Directive | PM | | | + + + + +
--- OUTSIDE RECORDS SUMMARY | ~2019-06-11 | XMS | Encounter Summary ---
Demographics + + + | Address | [address] | | | [place] [address] | + + + | Home Phone | | + + + | Preferred Language | Unknown | + + + | Marital Status | | + + + | Evangelical Affiliation | 1061 | + + + | Race | Unknown | + + + | Ethnic Group | Unknown | + + + Author + + + | Author | [facility] | | | and [place] | + + + | Organization | [facility] | | | and Jesúsana [...] Team Providers + +------+ + | Care Emergency Room Technician Name | Role | Phone | + +------+ + | Kenneth Duncan DO | PCP | | + +------+ + Reason for Visit + + + | Reason | Comments | + + + | Lab Order | | + + + Encounter Details +--------+ + + + + | Date | Type | Department | Care Team | Description | +--------+ + + + + | 06/15/ | Telephone | [facility] | Syeda Nichole | Lab Order | | 2018 | | [facility] | | | | | | [facility] [address] | | | | | | [address] [facility] [place], | | | | | | [place] [address] | | | | | | [phone] | | | +--------+ + + + [...] as of this encounter Plan of Treatment + +------+--------+ + + | Name | Type | Priori | Associated Diagnoses | Order Schedule | | | | ty | | | + +------+--------+ + + | Hemoglobin A1C | Lab | Routin | Diabetes mellitus | Expected: | | | | e | type 2, | 06/15/2018, Expires: | | | | | uncontrolled, | 06/15/2019 | | | | | without | | | | | | complications (HCC) | | + +------+--------+ + + documented as of this encounter Visit Diagnoses + + | Diagnosis | + + | Diabetes mellitus type 2, uncontrolled, without complications (HCC) - Primary | + + documented in this encounter"
--- OUTSIDE RECORDS SUMMARY | ~2019-06-11 | XMS | Encounter Summary ---
Demographics + + + | Address | [address] | | | [place] [address] | + + + | Home Phone | | + + + | Preferred Language | Unknown | + + + | Marital Status | | + + + | Taoist Affiliation | 1061 | + + + | Race | Unknown | + + + | Ethnic Group | Unknown | + + + Author + + + | Author | [facility] | | | and Jes[place] | + + + | Organization | [facility] | | | and Jesú[place]ana [...] Team Providers + +------+ + | Care Newspaper Clipper Name | Role | Phone | + +------+ + | Kenneth Duncan DO | PCP | | + +------+ + Reason for Visit + + + | Reason | Comments | + + + | Diabetes Mellitus | Diabetes Labs Reminder | | Management | | + + + Encounter Details +--------+ + + + + | Date | Type | Department | Care Team | Description | +--------+ + + + + | 05/23/ | Telephone | [facility] | Kenneth Duncan | Diabetes Mellitus | | 2019 | | [facility] | E, DO [address] | Management (Diabetes | | | | [facility] [address] | [place], [place] | Labs Reminder) | | | | [place], | [address] | | | | | [place] [address] | [phone] | | | | | [phone] | | | +--------+ + + + [...]
--- OUTSIDE RECORDS SUMMARY | ~2019-06-11 | XMS | Encounter Summary ---
Demographics + + + | Address | [address] | | | [place] [address] | + + + | Home Phone | | + + + | Preferred Language | Unknown | + + + | Marital Status | | + + + | Sikhism Affiliation | 1061 | + + + | Race | Unknown | + + + | Ethnic Group | Unknown | + + + Author + + + | Author | [facility] | | | and [place] | + + + | Organization | [facility] | | | and Jesú[place] [...] Team Providers + +------+ + | Care Accounts Payable Representative Name | Role | Phone | + +------+ + | Kenneth Duncan DO | PCP | | + +------+ + Reason for Visit + + + | Reason | Comments | + + + | Medication Prior | | | Authorization | | + + + Encounter Details +--------+ + + + + | Date | Type | Department | Care Team | Description | +--------+ + + + + | 04/03/ | Telephone | [facility] | Kenneth Duncan | Medication Prior | | 2017 | | [facility] | E, DO [address] | Authorization | | | | [facility]ICAL [facility] [address] | [place], [place] | | | | | [address] [place], | [address] | | | | | [place] [address] | [phone] | | | | | [phone] | | | +--------+ + + + [...]
--- OUTSIDE RECORDS SUMMARY | ~2019-06-11 | XMS | Encounter Summary ---
Demographics + + + | Address | [address] | | | [place] [address] | + + + | Home Phone | | + + + | Preferred Language | Unknown | + + + | Marital Status | | + + + | Taoist Affiliation | 1061 | + + + | Race | Unknown | + + + | Ethnic Group | Unknown | + + + Author + + + | Author | [facility] | | | and [place] | + + + | Organization | [facility] | [...] Team Providers + +------+ + | Care Wide Area Network Systems Administrator Name | Role | Phone | + +------+ + | Kenneth Duncan DO | PCP | | + +------+ + Reason for Visit + + + | Reason | Comments | + + + | Medication Refill | | | Assistance | | + + + Encounter Details +--------+ + + + + | Date | Type | Department | Care Team | Description | +--------+ + + + + | 03/15/ | Telephone | [facility] | Kenneth Duncan | Medication Refill | | 2018 | | [facility] | E, DO [address] | Assistance | | | | [facility] [address] | [place], [place] | | | | | [address] [place], | [address] | | | | | [place] [address] | [phone] | | | | | [phone] | | | +--------+ + + + [...]
--- OUTSIDE RECORDS SUMMARY | ~2019-06-11 | XMS | Encounter Summary ---
Demographics + + + | Address | [address] | | | [place] [address] | + + + | Home Phone | | + + + | Preferred Language | Unknown | + + + | Marital Status | | + + + | Church Affiliation | 1061 | + + + | Race | Unknown | + + + | Ethnic Group | Unknown | + + + Author + + + | Author | [facility] | | | and [place] | + + + | Organization | [facility] | | | and [place] [...] Team Providers + +------+ + | Care Cloth Framer Name | Role | Phone | + +------+ + | Kenneth Duncan DO | PCP | | + +------+ + Reason for Visit +---------+ + | Reason | Comments | +---------+ + | Results | | +---------+ + Encounter Details +--------+ + + + + | Date | Type | Department | Care Team | Description | +--------+ + + + + | 10// | Telephone | [facility] | Idris Rhodes, | Results | | 2019 | | [facility] | DNP [address] | | | | | MED[facility] [address] | [place] [address] | | | | | [address] [place], | [phone] | | | | | [place] [address] | | | | | | [phone] | | | +--------+ + + + [...]
--- OUTSIDE RECORDS SUMMARY | ~2019-06-11 | XMS | Encounter Summary ---
Demographics + + + | Address | [address] | | | [place] [address] | + + + | Home Phone | | + + + | Preferred Language | Unknown | + + + | Marital Status | | + + + | Mormonism Affiliation | Unknown | + + + [...] Team Providers + +------+ + | Care Lead Web Developer Name | Role | Phone | [...] as of this encounter Progress Notes Interface, Gallery Or Museum Guide In - 01/31/2005 8:35 AM PDT [id number] 04/02/2004 04/02/2004 [id number] DON Barragan Referred From and Faxed To: Alejandro Duncan M.D. Referred To: General surgery outpatient consultation. Consulting Physician: Derik Avila Consultation Date: 04/02/2004 Chief Complaint: Not dictated. Reason for Requested Consultation: The patient is referred to [facility] Department of Surgery for discussion of [...] Cranial nerves II-XII are intact. Upper extremity director of online merchandising are equal and full bilaterally. Deep tendon [...] be done by Donn Westfall M.D. at [facility]. In addition, prior to her surgery, it [...] questions or concerns. Derik Avila SS/[id number] P [phone] cc: Alejandro Duncan M.D. [address] [place], [place] [address] documented i n this encounter Plan of Treatment Not on filedocumented as of this encounter Visit Diagnoses Not on filedocumented in this encounter
--- OUTSIDE RECORDS SUMMARY | ~2019-06-11 | XMS | Clinical Summary ---
Demographics + + + | Address | [address] | | | [place] [address] | + + + | Home Phone | | + + + | Preferred Language | Unknown | + + + | Marital Status | | + + + | Tenriism Affiliation | 1061 | + + + | Race | Unknown | + + + | Ethnic Group | Unknown | + + + Author + + + | Author | [facility] | | | and Jes[place] | + + + | Organization | [facility] | | | and Jesúsana [...] Team Providers + +------+ + | Care Net Coordinator Name | Role | Phone | [...] - 1.030 | [place] | | | [place] | | | RONDE | | | [...] + + | [facility] | [address] | [place] [address] | [phone] | | HOSPITAL LABORATORY | | | | + + + + + Pap Smear (04/03/2019 12:00 AM PDT) + + | Specimen | + + | | + + + + + | Narrative | Performed At | + + + | ORDERING PHYSICIAN: Kenneth Duncan DO PATIENT NAME: | MD PATHOLOGY | | Gabriel GARCIA GENDER: F [...] | have received in error, please call [phone]. PERFORMING | | | LABORATORY: Technical preparation was performed by [employer] | | | [place], [address] [place] [address] | | | (Pipe Threading Machine Operator: Aristeo Leroy D.O.; [facility]#: [id number]). | | | Diagnostician: Paulo VILLALBA([facility]) Electrostatic Painter Electronically | | | Signed 04/06/2019 | | + + + + +---------+ + + | Performing | Address | City[facility]State[facility] | Phone Number | | Organization | [...] | [employer] | [place] | [id number] | | [phone] | | Med[employer] | | MEDICAID HMO [...] Person | Self | [birth year] | [address] | | | al/Fam | | 1970 | [phone] | [place] [address] | | | jayson | | | 8 (Home) | | + +--------+ +--------+ + + Advance Directives + + + + + | Type | Date Recorded | Patient | Explanation | | | | Wash Oil Pump Operator Helper | | + + + + + | Power of | | | | | Esl Professor | | | | + + + + + | Advance | 02/27/2018 2:13 | | | | Directive | PM | | | + + + + +
--- OUTSIDE RECORDS SUMMARY | ~2019-06-11 | XMS | Encounter Summary ---
Demographics + + + | Address | [address] | | | [place] [address] | + + + | Home Phone | | + + + | Preferred Language | Unknown | + + + | Marital Status | | + + + | Baptist Affiliation | 1061 | + + + | Race | Unknown | + + + | Ethnic Group | Unknown | + + + Author + + + | Author | [facility] | | | and Jes[place] | + + + | Organization | [facility] | | | and Jesúsana | [...] Team Providers + +------+ + | Care Media Relations Director Name | Role | Phone | + [...] Description | +--------+--------+ + + + | 03/08/ | Refill | [facility] | Odette Marinelli, CC | Medication Refill | | 2017 | | [facility] | [facility] | | | | | [facility] [address] | | | | | | [address] [place], | | | | | | [place] [address] | | | | | | [phone] | | | +--------+--------+ + + + [...]
--- OUTSIDE RECORDS SUMMARY | ~2019-06-11 | XMS | Encounter Summary ---
Demographics + + + | Address | [address] | | | [place] [address] | + + + | Home Phone | | + + + | Preferred Language | Unknown | + + + | Marital Status | | + + + | Anglican Affiliation | 1061 | + + + | Race | Unknown | + + + | Ethnic Group | Unknown | + + + Author + + + | Author | [facility] | | | and Jes[place]ana | + + + | Organization | [facility] | | | and [...] Team Providers + +------+ + | Care Commercial Lending Assistant Name | Role | Phone | + +------+ + | Kenneth Duncan DO | PCP | | + +------+ + Reason for Visit +---------+ + | Reason | Comments | +---------+ + | Results | Follow Up | +---------+ + Encounter Details +--------+ + + + + | Date | Type | Department | Care Team | Description | +--------+ + + + + | 04/06/ | Telephone | [place] [facility] | Kenneth Duncan | Results (Follow Up ) | | 2019 | | [facility] | E, DO [address] | | | | | MEDICAL CLIN[facility] [address] | [place], [place] | | | | | [address] [place], | [address] | | | | | [place] [address] | [phone] | | | | | [phone] | | | +--------+ + + + [...]
--- OUTSIDE RECORDS SUMMARY | ~2019-06-11 | XMS | Encounter Summary ---
Demographics + + + | Address | [address] | | | [place] [address] | + + + | Home Phone | | + + + | Preferred Language | Unknown | + + + | Marital Status | | + + + | Methodist Affiliation | Unknown | + + + | Race | White | + + + | Ethnic Group | Not or | + + + Author + + + | Author | [facility] | + + + | Organization | [facility] | + + + | Address | Unknown | + + + | Phone | Unavailable | + + + Support + + +---------+ + | Name | Relationship | Address | Phone | + + +---------+ + | Vinicio Garcia | ECON | Unknown | | + + +---------+ + Care Team Providers + +------+ + | Care Child Day Care Center Worker Name | Role | Phone | + [...] | | | [address] | [facility] | sleep | | | | [facility] Mailcode: | [place], [place] | | | | | [address] Physician's | [address] | | | | | [address], 4th Floor | [phone] | | | | | [place], [place] | | | | | | [address] | | | | | | [phone] | | | +--------+---------+ + + + [...] patient was referred by: Kenneth Duncan DO [facility] [address] [place] [address], . Your patient, Ms. Garcia, a 41 y.o. female, was evaluated in the [facility] o n September 28, 2011. [...] use illicit drugs. 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 Medico-Legal: No pending litigation. [...] Clinic as needed. LOUANN HOLGUIN RHEUMATOLOGY FACULTY [facility] Mailcode: [address] [facility], 4th Floor [facility] [address] documented in th is encounter Plan of Treatment Not on filedocumented as of this encounter Visit Diagnoses + + | Diagnosis | + + | Fibromyalgia Mylagia and myositis, unspecified | + + | Non-restorative sleep Other sleep disturbances | + + documented in this encounter
--- OUTSIDE RECORDS SUMMARY | ~2019-06-11 | XMS | Encounter Summary ---
Demographics + + + | Address | [address] | | | [place] [address] | + + + | Home Phone | | + + + | Preferred Language | Unknown | + + + | Marital Status | | + + + | Sabianism Affiliation | Unknown | + + + [...] Team Providers + +------+ + | Care Security Public Safety Officer Name | Role | Phone | + +------+ + PCP | Unavailable | + +------+ + Encounter Details +--------+ + + + + | Date | Type | Department | Care Team | Description | +--------+ + + + + | 12/02/ | Results | | Other, Faculty | | | 2006 | Only | | [phone] | | +--------+ + + + + [...] + + | DERMATOPATHOLOGY(CON | Routin | 12/02/2005 | | Results for this | | SULT) | e | | | procedure are in the | | | | | | results section. | + +--------+ + + + documented in this encounter Results DERMATOPATHOLOGY(CONSULT) (12/02/2005) + + + + + + | Component | Value | Ref Range | Performed | Pathologist | | | | | At | Signature | + + + + + + | DERMATOPATH | THIS IS AN ADDENDUM | | | | | (CONSULT) | REPORT SOURCE OF | | | | | | SPECIMEN:A CONSULTATION | | | | | | DIAGNOSIS:MELANOMA IN | | | | | | SITU, RIGHT ARM, IN | | | | | | ASSOCIATION WITH A | | | | | | PRE-EXISTING NEVUS, | | | | | | ANDSCAR. The melanoma | | | | | | appears to be confined | | | | | | to the epidermis (in | | | | | | situ) in thesesections | | | | | | although the dense, | | | | | | band-like, lymphocytic | | | | | | infiltrate obscuresmuch | | | | | | of the papillary dermis | | | | | | making it difficult to | | | | | | entirely | | | | | | excludesuperficial | | | | | | dermal involvement. In | | | | | | addition, the prominent | | | | | | scar suggestspreceding | | | | | | trauma such as biopsy, | | | | | | perhaps accounting for | | | | | | the clinicalpresentation | | | | | | (centrally | | | | | | hypopigmented). Is | | | | | | there history of a | | | | | | precedingbiopsy and, if | | | | | | so, is it available for | | | | | | review to further | | | | | | characterize theextent | | | | | | of the melanoma? The | | | | | | melanoma extends to | | | | | | within a millimeter or | | | | | | soof the epidermal | | | | | | surgical margins. For | | | | | | these reasons, | | | | | | additional treatmentto | | | | | | insure its complete | | | | | | removal would be | | | | | | prudent. Thank you for | | | | | | referring this | | | | | | consultation.1 slide, | | | | | | [id number] returned to | | | | | | Dr. Vásquez. CRW:mm | | | | | | 12/06/05 | | | | | | ADDENDUM:Following | | | | | | discussions with | | | | | | Fahad, the original | | | | | | slide from this | | | | | | casesupplied from his | | | | | | lab is reviewed and | | | | | | shows, in one section, a | | | | | | verysuperficial | | | | | | collection of atypical | | | | | | melanocytes immediately | | | | | | beneath theepidermis, | | | | | | apparently in the upper | | | | | | dermis, findings of | | | | | | MELANOMA, RIGHT | | | | | | ARM,MEASURING 0.25MM IN | | | | | | THICKNESS, | | | | | | NON-ULCERATED, IN | | | | | | ASSOCIATION WITH | | | | | | APRE-EXISTING NEVUS AND | | | | | | SCAR. There are some | | | | | | features suggesting the | | | | | | dermalmelanocyte | | | | | | collection may be within | | | | | | an endothelial-lined | | | | | | vessel although itis | | | | | | difficult to confirm in | | | | | | these sections. The | | | | | | melanoma extends closely | | | | | | tothe surgical margins | | | | | | and additional treatment | | | | | | to insure its | | | | | | completeremoval would be | | | | | | prudent. 2 slides | | | | | | returned to | | | | | | Fahad. | | | | | | CRW:mm12/10/05Rendering | | | | | | Diagnostician: Osvaldo | | | | | | Jose G Mauricio Jr., | | | | | | Kimberli | | | | | | jero Signed 12/10/2005 | | | | + + + + + + + + | Specimen | + + | | + + + + + | Narrative | Performed At | + + + | Ordered by Fahad Jackson MD | | + + + + + + + + | Performing | Address | City/State/Zipcode | Phone Number | | Organization | | | | + + + + + | [facility] | [address] | [place] [address] | | | DERMATOPATHOLOGY | Roberto Lee | | | + + + + + documented in this encounter Visit Diagnoses Not on filedocumented in this encounter"
--- OUTSIDE RECORDS SUMMARY | ~2019-06-11 | XMS | Encounter Summary ---
Demographics + + + | Address | [address] | | | [place] [address] | + + + | Home Phone | | + + + | Preferred Language | Unknown | + + + | Marital Status | | + + + | Restorationist Affiliation | 1061 | + + + | Race | Unknown | + + + | Ethnic Group | Unknown | + + + Author + + + | Author | [facility] | | | and Jesú[place] | + + + | Organization | [facility] | | | and [...] Team Providers + +------+ + | Care Vessel Welder Name | Role | Phone | + [...] Lab Order | | 2018 | | [facility] | | | | | | MEDICAL CLINIC [address] | | | | | | [address] [facility] [place], | | | | | | [place] [address] | | | | | | [phone] | | | +--------+ + + + [...]
--- OUTSIDE RECORDS SUMMARY | ~2019-06-11 | XMS | Encounter Summary ---
Demographics + + + | Address | [address] | | | [place] [address] | + + + | Home Phone | | + + + | Preferred Language | Unknown | + + + | Marital Status | | + + + | Presybeterian Affiliation | 1061 | + + + | Race | Unknown | + + + | Ethnic Group | Unknown | + + + Author + + + | Author | [facility] | | | and [place] | + + + | Organization | [facility] | | | and Jesúsana [...] Providers + +------+ + | Care Dental Lab Technician Name | Role | Phone | + +------+ + PCP | Unavailable | + +------+ + Encounter Details +--------+ + + + + | Date | Type | Department | Care Team | Description | +--------+ + + + + | 10/23/ | Hospital | [facility] | | | | 1995 | Encounter | [facility] | | | | | | CENTER [address] | | | | | | [place] | | | | | | [address] | | | | | | [phone] | | | +--------+ + + + [...]
--- OUTSIDE RECORDS SUMMARY | ~2019-06-11 | XMS | Encounter Summary ---
Demographics + + + | Address | [address] | | | [place] [address] | + + + | Home Phone [...] | + + + | Organization | [facility] | | | and Jesúsana [...] Team Providers + +------+ + | Care Weighmaster Name | Role | Phone | + +------+ + | Kenneth Dnucan DO | PCP | | + +------+ [...] ) | | 2019 | | [facility] | E, DO [address] | | | | | MEDICAL CLIN[address] | [place], [place] | | | | | [address] [place], | [address] | | | | | [place] [address] | [phone] | | | | | [phone] | | | +--------+ + + + [...]
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
--- OUTSIDE RECORDS SUMMARY | ~2019-06-11 | XMS | Encounter Summary ---
Demographics + + + | Address | [address] | | | [place] [address] | + + + | Home Phone | | + + + | Preferred Language | Unknown | + + + | Marital Status | | + + + | Orthodoxy Affiliation | Unknown | + + + [...] Team Providers + +------+ + | Care Outside Installation Machinist Name | Role | Phone | + [...] as of this encounter Progress Notes Interface, Stock Mover In - 01/31/2005 8:35 AM PDT [id number] 04/02/2004 04/02/2004 [id number] DON Barragan Referred From and Faxed To: [facility] Referred To: [facility] Consulting Physician: Miryam Hall R.D., L.D. Consultation Date: 04/02/2004 Reason for Requested Consultation: Diet consult prior to having Jasmyne-en-Y gastric bypass surgery. Documented time of visit: 1:15 until 2:20. Length of visit: 65 minutes of scuz-bt-injv consult with patient. Subjective: Patient attended public meeting March 30. States no food allergies, no food intolerance, no lactose intolerance. Provides information that she has researched this surgery for about two years. Also provides information that two to three years ago she saw a dietitian for general weight loss, but had difficulty following that plan. 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 Physical Activity: Currently, her knee joint pain is causing a lot of problems. She is thinking about starting a water exercise program. Objective: A 34-year-old female. Height if 5 feet, 6 inches, weight is 260 lb. That puts her at a body mass index of 42. Past Medical History: Please see history and physical from today, April 02, 2004. Patient has GERD. Medications: Zantac gykh-jtj-nrgosgq and supplements - she is not taking any multivitamin and mineral supplements. Assessment: Patient is here today for initial assessment for medical nutrition therapy for diet instruction prior to having gastric bypass surgery. Post Surgery Diet Education: 1. Provided visual, verbal and written information on diet progression following bariatric surgery. 2. Discussed weight loss plateaus, food journal, lifelong dietary changes. 3. Discussed importance of physical activity to maintain weight loss. 4. Behavior changes. Chew food well, eat small portions recommended to minimize stomach discomfort. Also made suggestions to fit into her work life eating plan as a mailroom supervisor. 5. Post surgery nutrition supplements discussed, including a chewable multivitamin and mineral, calcium and vitamin B12. Patient's Understanding: Patient is very receptive and interactive. I feel she understands the changes in food intake after surgery. Expected Outcome: I think patient will do very well as long as she is able to maintain diet progression, eats five to six very small meals or snacks a day, and commits to physical activity and lifelong healthful changes discussed today. Plan: Patient's goal is to lose weight and have less joint pain and be more active. 1. Read materials. 2. Practice behavior changes. Continue to slow down eating before surgery. 3. Exercise after surgery when approved by [employer] 4. Follow-up with Hitesh as needed post surgery. 5. Hitesh's business card with contact information provided. Miryam Hall R.D., LJack. SR/y09 P [phone] cc: documented i n this encounter Plan of Treatment Not on filedocumented as of this encounter Visit Diagnoses Not on filedocumented in this encounter"
--- OUTSIDE RECORDS SUMMARY | ~2019-06-11 | XMS | Encounter Summary ---
Demographics + + + | Address | [address] | | | [place] [address] | + + + | Home Phone | | + + + | Preferred Language | Unknown | + + + | Marital Status | | + + + | Sabianist Affiliation | Unknown | + + + | Race | White | + + + | Ethnic Group | Not or | + + + Author + + + | Author | [facility] | + + + | Organization | [facility] | + + + | Address | Unknown | + + + | Phone | Unavailable | + + + Support + + +---------+ + | Name | Relationship | Address | Phone | + + +---------+ + | Vinicio Garcia | ECON | Unknown | | + + +---------+ + Care Team Providers + +------+ + | Care Road Crossing Guard Name | Role | Phone | + [...] [place] | | | | | | [address] | Mailcode: | | | | | | Phone: | PV35 | | | | | | [phone] | Physician's | | | | | | Fax: | Pavilion | | | | | | [phone] | [place], [place] | | | | | | | [address] | | | | | | | Phone: | | | | | | | [phone] | | | | | | | Fax: | | | | | | | [phone] | +--------+--------+ + + + + Encounter Details +--------+---------+ + + + | Date | Type | Department | Care Team | Description | +--------+---------+ + + + | 11/06/ | Office | Rheumatology at | [facility] | Fibromyalgia | | 2013 | Visit | [facility] | Ward, RESIN MAKER [address] | (Primary Dx); Muscle | | | | [address] | [address] | spasm; Chronic knee | | | | Joslyn Maravilla Mailcode: | [place], [place] | pain | | | | [address] Physician's | [address] | | | | | [facility], [address] Floor | [phone] | | | | | [place], [place] | | | | | | [address] | | | | | | [phone] | | | +--------+---------+ + + + [...] unit Oral tablet Take 5,000 Units by [facility] once daily. cyclobenzaprine 5 mg Oral tablet [...] today chronic bilateral knee pain. Functional Assessment: [facility] 09/28/2011 11/06/2012 RAPID 3 [id number] [phone] [...] will contact me later this week through [employer] and let me know how she is [...] of today's injections. LOUANN HOLGUIN RHEUMATOLOGY FACULTY [facility] [facility] Mailcode: Op09 [facility] [address] [facility] [address] documented in th is encounter Plan of Treatment Not on filedocumented as of this encounter Procedures + +--------+ + + + | Procedure Name | Priori | Date/Time | Associated Diagnosis | Comments | | | ty | | | | + +--------+ + + + | [place] INJECT TRIGGER | Routin | 11/06/2012 | [...]
--- OUTSIDE RECORDS SUMMARY | ~2019-06-11 | XMS | Encounter Summary ---
Demographics + + + | Address | [address] | | | [place] [address] | + + + | Home Phone | | + + + | Preferred Language | Unknown | + + + | Marital Status | | + + + | Taoist Affiliation | 1061 | + + + | Race | Unknown | + + + | Ethnic Group | Unknown | + + + Author + + + | Author | [facility] | | | and Jes[place] | + + + | Organization | [facility] | | | and Jesúsana [...] Team Providers + +------+ + | Care Threading Machine Setter Name | Role | Phone | + +------+ + | Kenneth Duncan DO | PCP | | + +------+ + Reason for Visit + + + | Reason | Comments | + + + | Insurance | Appeal letter | | Authorization | | + + + Encounter Details +--------+ + + + + | Date | Type | Department | Care Team | Description | +--------+ + + + + | 04/26/ | Telephone | [place] [facility] | Kenneth Duncan | Insurance | | 2019 | | [facility] | E, DO [address] | Authorization | | | | [facility] [address] | [place], [place] | (Appeal letter ) | | | | [address] [place], | [address] | | | | | [place] [address] | [phone] | | | | | [phone] | | | +--------+ + + + [...]
--- OUTSIDE RECORDS SUMMARY | ~2019-06-11 | XMS | Encounter Summary ---
Demographics + + + | Address | [address] | | | [place] [address] | + + + | Home Phone | | + + + | Preferred Language | Unknown | + + + | Marital Status | | + + + | Scientology Affiliation | 1061 | + + + | Race | Unknown | + + + | Ethnic Group | Unknown | + + + Author + + + | Author | [facility] | | | and Jesú[place] | + + + | Organization | [facility] | | | and Jesúsana [...] Team Providers + +------+ + | Care Pulpwood Cutter Name | Role | Phone | + [...] | | [address] [place], | [address] | | | | | [place] [address] | [phone] | | | | | [phone] | | | +--------+ + + + [...]
--- OUTSIDE RECORDS SUMMARY | ~2019-06-11 | XMS | Encounter Summary ---
Demographics + + + | Address | [address] | | | [place] [address] | + + + | Home Phone | | + + + | Preferred Language | Unknown | + + + | Marital Status | | + + + | Scientologist Affiliation | 1061 | + + + | Race | Unknown | + + + | Ethnic Group | Unknown | + + + Author + + + | Author | [facility] | | | and Jesú[place] | + + + | Organization | [facility] | | | and Jesúsana [...] Team Providers + +------+ + | Care Roving Marker Name | Role | Phone | + [...] | | | [address] [place], | [address] | | | | | [place] [address] | [phone] | | | | | [phone] | | | +--------+ + + + [...]
--- OUTSIDE RECORDS SUMMARY | ~2019-06-11 | XMS | Clinical Summary ---
Demographics + + + | Address | [address] | | | [place] [address] | + + + | Home Phone | | + + + | Preferred Language | Unknown | + + + | Marital Status | | + + + | Scientologist Affiliation | Unknown | + + + | Race | White | + + + | Ethnic Group | Not or | + + + Author + + + | Author | [facility] | + + + | Organization | [facility] | + + + | Address | Unknown | + + + | Phone | Unavailable | + + + Support + + +---------+ + | Name | Relationship | Address | Phone | + + +---------+ + | Vinicio Garcia | ECON | Unknown | | + + +---------+ + Care Team Providers + +------+ + | Care Manufacturing Engineer Supervisor Name | Role | Phone | + +------+ + | Kenneth Ducnan DO | PCP | | + +------+ + Source Comments [facility] is fully live on both [facility] and [facility] InPatient.[facility] Allergies No Known Allergies Medications + + + +---------+------+------+-------+ | Medication | Sig | Dispensed | Refills | Star | End | Statu | | | | | | t | Date | s | | | | | | Date | | | + + + +---------+------+------+-------+ | meloxicam 15 mg | Take 15 mg by mouth | | 0 | | | Activ | | Oral tablet | once daily. | | | | | e | + + + +---------+------+------+-------+ | pramipexole 0.125 | Take 0.125 mg by | | 0 | | | Activ | | mg Oral tablet | mouth two times | | | | | e | | | daily. | | | | | | + + + +---------+------+------+-------+ | cyclobenzaprine 5 | Take 5 mg by mouth | | 0 | | | Activ | | mg Oral tablet | two times daily. Do | | | | | e | | | not use longer than | | | | | | | | 2-3 weeks. | | | | | | + + + +---------+------+------+-------+ | traMADol 50 mg | Take 50 mg by mouth | | 0 | | | Activ | | Oral tablet | two times daily. | | | | | e | + + + +---------+------+------+-------+ | Cholecalciferol, | Take 5,000 Units by | | 0 | | | Activ | | Vitamin D3, (VITAMIN | mouth once daily. | | | | | e | | D3) 5,000 unit Oral | | | | | | | | tablet | | | | | | | + + + +---------+------+------+-------+ | | Take by mouth. | | 0 | | | Activ | | GLUCOSAMINE/CHONDROI | | | | | | e | | TIN SULF A | | | | | | | | (GLUCOSAMINE-CHONDRO | | | | | | | | ITIN ORAL) | | | | | | | + + + +---------+------+------+-------+ | FIBER ORAL | Take by mouth. | | 0 | | | Activ | | | | | | | | e | + + + +---------+------+------+-------+ | LYSINE ORAL | Take by mouth. | | 0 | | | Activ | | | | | | | | e | + + + +---------+------+------+-------+ Active Problems + + + | Problem | Noted Date | + + + | Fibromyalgia | 11/06/2012 | + + + Family History + + +------+ + | Medical History | Relation | Name | Comments | + + +------+ + | Arthritis | Father | | | + + +------+ + | Heart Disease | Father | | | + + +------+ + | Hypertension | Father | | | + + +------+ + | Arthritis | Mother | | | + + +------+ + | Cancer | Mother | | | + + +------+ + | Diabetes | Mother | | | + + +------+ + | Psychiatry | Mother | | | + + +------+ + + +------+--------+ + | Relation | Name | Status | Comments | + +------+--------+ + | Father | | | | + +------+--------+ + | Mother | | | | + +------+--------+ + Social History + +-------+ +--------+------+ | [...] | + + + + + | Influenza (Flu) | | | | | vaccination (#1) | 9 | | | + + + + + | Pneumococcal | Aged Out | | No longer eligible | | vaccination | | | based on patient's | | | | | age to complete this | | | | | topic | + + + + + Results Not on filefrom Last 3 Months Insurance + +--------+ +--------+-------+---------+--------+ | Payer | Benefi | Subscriber | Effect | Phone | Address | Type | | | t Plan | ID | radhika | | | | | | / | | Dates | | | | | | Group | | | | | | + +--------+ +--------+-------+---------+--------+ | COMMERCIAL GROUP | COMMER | xxxxxxxxx | Effect | | | Indemn | | | CIAL | | radhika | | | ity | | | GROUP | | for | | | | | | | | all | | | | | | | | dates | | | | + +--------+ +--------+-------+---------+--------+ + +--------+ +--------+ + + | Guarantor Name | Accoun | Relation to | Date | Phone | Billing Address | | | t Type | Patient | of | | | | | | | | | | + +--------+ +--------+ + + | Radha,Dawnita Liana | Person | Self | [birth year] | [address] | | | al/José | | 1970 | [phone] | [place] [address] | | | jayson | | | 8 (Home) | | + +--------+ +--------+ + +
--- OUTSIDE RECORDS SUMMARY | ~2019-06-11 | XMS | Encounter Summary ---
Demographics + + + | Address | [address] | | | [place] [address] | + + + | Home Phone | | + + + | Preferred Language | Unknown | + + + | Marital Status | | + + + | Yazidi Affiliation | 1061 | + + + | Race | Unknown | + + + | Ethnic Group | Unknown | + + + Author + + + | Author | [facility] | | | and Jesúsana | + + + | Organization | [facility] | | | and [...] Team Providers + +------+ + | Care Piano Regulator Name | Role | Phone | + [...] Description | +--------+--------+ + + + | 05/10/ | Refill | [facility] | Kenneth Duncan | Medication Refill | | 2017 | | [facility] | E, DO [address] | | | | | MEDICAL CLIN[facility] [address] | [place], [place] | | | | | [address] [place], | [address] | | | | | [place] [address] | [phone] | | | | | [phone] | | | +--------+--------+ + + + [...]
--- OUTSIDE RECORDS SUMMARY | ~2019-06-11 | XMS | Encounter Summary ---
Demographics + + + | Address | [address] | | | [place] [address] | + + + | Home Phone | | + + + | Preferred Language | Unknown | + + + | Marital Status | | + + + | Jainism Affiliation | 1061 | + + + | Race | Unknown | + + + | Ethnic Group | Unknown | + + + Author + + + | Author | [facility] | | | and Jesúsana | + + + | Organization | [facility] | | | and [...] Team Providers + +------+ + | Care Sand Cleaning Machine Operator Name | Role | Phone | [...] Refill | | 2018 | | [facility] | E, DO [address] | | | | | MEDICAL CL[address] | [place], [place] | | | | | [address] [place], | [address] | | | | | [place] [address] | [phone] | | | | | [phone] | | | +--------+--------+ + + + [...]
--- OUTSIDE RECORDS SUMMARY | ~2019-06-11 | XMS | Encounter Summary ---
Demographics + + + | Address | [address] | | | [place] [address] | + + + | Home Phone | | + + + | Preferred Language | Unknown | + + + | Marital Status | | + + + | Cheondoism Affiliation | 1061 | + + + | Race | Unknown | + + + | Ethnic Group | Unknown | + + + Author + + + | Author | [facility] | | | and Jesúsana | + + + | Organization | [facility] | | [...] Team Providers + +------+ + | Care Wallpaper Hanger Name | Role | Phone | + +------+ + | Kenneth Duncan DO | PCP | | + +------+ + Reason for Visit + + + | Reason | Comments | + + + | Establish Care | Re-establishing care | + + + | Pain | Discuss pain management, left hip discomfort. | + + + Encounter Details +--------+---------+ + + + | Date | Type | Department | Care Team | Description | +--------+---------+ + + + | 02/27/ | Office | [facility] | Kenneth Duncan | Fibromyalgia | | 2018 | Visit | [facility] | E, DO [address] | (Primary Dx); | | | | MEDICAL CL[facility] [address] | [place], [place] | Chronic pain | | | | [address] [place], | [address] | syndrome; Left hip | | | | [place] [address] | [phone] | pain; Trochanteric | | | | [phone] | | bursitis of left | | | | | | hip; Hypoglycemia | +--------+---------+ + + + Social History [...] + + + | Blood Pressure | 120/72 | 02/27/2018 2:30 PM | | | | | PDT | | + + + + + | Pulse | 71 | 02/27/2018 2:30 PM | | | | | PDT | | + + + + + | Temperature | 36.8 C (98.3 F) | 02/27/2018 2:30 PM | | | | | PDT | | + + + + + | Respiratory Rate | 16 | 02/27/2018 2:30 PM | | | | | PDT | | + + + + + | Oxygen Saturation | 99% | 02/27/2018 2:30 PM | | | | | PDT | | + + + + + | Inhaled Oxygen | - | - | | | Concentration | | | | + + + + + | Weight | 95.3 kg (210 lb 3.2 | 02/27/2018 2:30 PM | | | | oz) | PDT | | + + + + + | Height | 168.9 cm (5' 6.5") | 02/27/2018 2:30 PM | | | | | PDT | | + + + + + | Body Mass Index | 33.42 | 02/27/2018 2:30 PM | | | | | PDT | | + + + + + documented in this encounter Progress Notes eKnneth Duncan DO - 02/27/2018 2:20 PM PDT Patient ID: Gabriel Garcia is a 48 y.o. year old female Chief Complaint: Chief Complaint Patient presents with Establish Care Re-establishing care Pain Discuss pain management, left hip discomfort. Assessment Fibromyalgia (Primary) - Pregabalin; Take 1 capsule by mouth Daily. Dispense: 30 capsule; Refill: 2 Chronic pain syndrome Left hip pain - Arthrocentesis Trochanteric bursitis of left hip Hypoglycemia - Glucose Blood; Use as directed. Dispense: 100 each; Refill: 11 Plan -Start Lyrica 25 mg daily, if not helping call and we can increase the dose -Call in 6 weeks to let me know how the Lyrica is working -Follow up 1 month, Lyrica and Injection review Subjective: HPI Gabriel presents to the clinic today to re-establish care from PFM, and discuss pain manage ment. She is experiencing more pain from her Fibromyalgia. Pain is from her head to her toes. She states it hurts to be touched or touch anything. Usually she just tries to ignore the pain. She was told 5 years ago she would probably need her left hip repaired, due to arthritis. 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 Pain is sharp and radiates down her leg. She i s having to rotate on each side while sleeping. Current Outpatient Prescriptions Medication Sig Dispense Refill acetaminophen (TYLENOL) 325 mg tablet Take 650 mg by mouth as needed for Pain. Use with IBU, NEEDED, roughly three times per week. cholecalciferol (VITAMIN D-3) 5000 units TABS Take 5,000 Units by mouth Daily. ibuprofen (ADVIL, MOTRIN) 200 mg tablet Take [...] hip pain Iliopsoas bursitis of left hip Family History Problem Relation Age of Onset Diabetes Mother Cancer Mother breast, ovarian and neck Other (see comment) Father at age 69 of hypoglyceemia due to insulin Hypertension Father Hypertension Paternal Grandmother Diabetes Paternal Grandmother Past Surgical History: Procedure Laterality Date APPENDECTOMY ARTHROSCOPIC KNEE SURGERY BILATERAL SECTION CHOLECYSTECTOMY gastric sleeve lympanostomy tubes melanoma Right Arm NOSE SURGERY ARDEN AND BSO TUBAL LIGATION Social History Social History Marital status: Spouse name: N/A Number of children: N/A Years of education: N/A Occupational History Not on file. Social History Main Topics Smoking status: Never Smoker Smokeless tobacco: Never Used Alcohol use No Drug use: No Sexual activity: Not on file Other Topics Concern Not on file Social History Narrative No narrative on file Allergies Allergen Reactions Latex Rash Review of Systems Constitutional: Negative for fatigue and fever. Respiratory: Negative for cough, chest tightness, shortness of breath and wheezing. Cardiovascular: Negative for chest pain and palpitations. Gastrointestinal: Negative for abdominal pain, nausea and vomiting. Musculoskeletal: Negative for gait problem and myalgias. Neurological: Negative for dizziness, syncope and headaches. Psychiatric/Behavioral: The patient is not nervous/anxious. Objective: Vitals: BP 120/72 | Pulse 71 | Temp 36.8 C (98.3 F) (Oral) | Resp 16 | Ht 1.689 m (5' 6.5") | Wt 95.3 kg (210 lb 3.2 oz) | SpO2 99% | BMI 33.42 kg/m Physical Exam Constitutional: She appears well-developed and well-nourished. HENT: Head: Atraumatic. Eyes: Pupils are equal, round, and reactive to light. EOM are normal. Cardiovascular: Normal rate, regular rhythm and normal heart sounds. Pulmonary/Chest: Effort normal and breath sounds normal. Abdominal: Bowel sounds are normal. Musculoskeletal: Left hip - Greater trochanter bursitis and Iliotibial band syndrome Lymphadenopathy: She has no cervical adenopathy. Neurological: She is alert. Skin: Skin is warm and dry. Psychiatric: She has a normal mood and affect. Entered by Syeda Nichole, acting as scribe for Dr. Perla DO. The documentation recorded by the scribe accurately reflects the service I personally perfo ed and the decisions made by me. Dr. Kenneth Duncan DO. 02/27/2018 15:51 Odette Prince CC CMA - 02/27/2018 2:20 PM PDTDawregina Garcia pre sents today with Chief Complaint of: Use with IBU, NEEDED, roughly three times per week. Discuss pain management, left hip discomfort. Current medications verified with her at time of visit. Pt currently shows no s/s of distress, shortness of breath. Vital signs: BP 120/72 | Pulse 71 | Temp 36.8 C (98.3 F) (Oral) | Resp 16 | Ht 1.68 9 m (5' 6.5") | Wt 95.3 kg (210 lb 3.2 oz) | SpO2 99% | BMI 33.42 kg/m Labs Obtained per protocol: None. Verbal Report given to: Kenneth Duncan DO. RD Johnston CMA documented in this encounter Plan of Treatment Not on filedocumented as of this encounter Procedures + +--------+ + + + | Procedure Name | Priori | Date/Time | Associated Diagnosis | Comments | | | ty | | | | + +--------+ + + + | [place] [id number] | Routin | 02/27/2018 | Left hip pain | Results for this | | DRAIN/INJECT | e | 2:20 PM | | procedure are in the | | JOINT/BURSA MAJOR | | PDT | | results section. | | JOINT W/O ULTRASOUND | | | | | | GUIDANCE | | | | | + +--------+ + + + documented in this encounter Results Arthrocentesis (02/27/2018 2:20 PM PDT) + + + | Narrative | Performed At | + + + | Kenneth Duncan DO 02/27/2018 16:02 PARQ Sterile technique | | | No complications and tolerated well. 0.5cc (20 [place] [address] | | | 1049 lot [id number] exp 07/2019 and 2cc 1[place] [address] 492 27 | | | LOT [id number] EXP 09/20 injected into greater trochanter of left hip. | | | | | + + + documented in this encounter Visit Diagnoses + + | Diagnosis | + + | Fibromyalgia - Primary Mylagia and myositis, unspecified | + + | Chronic pain syndrome | + + | Left hip pain Pain in joint, pelvic region and thigh | + + | Trochanteric bursitis of left hip Enthesopathy of hip region | + + | Hypoglycemia Hypoglycemia, unspecified | + + documented in this encounter
--- OUTSIDE RECORDS SUMMARY | ~2019-06-11 | XMS | Encounter Summary ---
Demographics + + + | Address | [address] | | | [place] [address] | + + + | Home Phone | | + + + | Preferred Language | Unknown | + + + | Marital Status | | + + + | Bahai Affiliation | Unknown | + + + [...] Team Providers + +------+ + | Care Lard Mixer Name | Role | Phone | [...] as of this encounter Progress Notes Interface, Manager Recruitment In - 01/31/2005 8:35 AM PDT [id number] 04/02/2004 04/02/2004 [id number] DON Barragan Referred From and Faxed To: [facility] Referred To: [facility] Consulting Physician: Miryam Hall R.D., L.D. Consultation Date: 04/02/2004 Reason for Requested Consultation: Diet consult prior to having Jasmyne-en-Y gastric bypass surgery. Documented time of visit: 1:15 until 2:20. Length of visit: 65 minutes of pacd-il-ewoe consult with patient. Subjective: Patient attended public meeting March 30. States no food allergies, no food intolerance, no lactose intolerance. Provides information that she has researched this surgery for about two years. Also provides information that two to three years ago she saw a dietitian for general weight loss, but had difficulty following that plan. 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 Physical Activity: Currently, her [...] 02, 2004. Patient has GERD. 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 5. Post surgery nutrition supplements discussed, including [...] provided. Miryam Hall R.D., LJack. SR/y09 P [id number] cc: documented i n this encounter Plan of Treatment Not on filedocumented as of this encounter Visit Diagnoses Not on filedocumented in this encounter"
--- OUTSIDE RECORDS SUMMARY | ~2019-06-11 | XMS | Encounter Summary ---
Demographics + + + | Address | [address] | | | [place] [address] | + + + | Home Phone | | + + + | Preferred Language | Unknown | + + + | Marital Status | | + + + | Rastafari Affiliation | Unknown | + + + | Race | White | + + + | Ethnic Group | Not or | + + + Author + + + | Author | [facility] | + + + | Organization | [facility] | + + + | Address | Unknown | + + + | Phone | Unavailable | + + + Support + + +---------+ + | Name | Relationship | Address | Phone | + + +---------+ + | Vinicio Garcia | ECON | Unknown | | + + +---------+ + Care Team Providers + +------+ + | Care Coroner Name | Role | Phone | + +------+ + | Kenneth Duncan DO | PCP | | + +------+ + Encounter Details +--------+ + + + + | Date | Type | Department | Care Team | Description | +--------+ + + + + | 05/15/ | Document-Sc | UNKNOWN DEPARTMENT | Unknown . | | | 2016 | anned | [address] | | | | | | [address] | | | | | | [place], [place] | | | | | | [address] | | | +--------+ + + + [...]
--- OUTSIDE RECORDS SUMMARY | ~2019-06-11 | XMS | Encounter Summary ---
Demographics + + + | Address | [address] | | | [place] [address] | + + + | Home Phone | | + + + | Preferred Language | Unknown | + + + | Marital Status | | + + + | Restoration Affiliation | Unknown | + + + | Race | White | + + + | Ethnic Group | Not or | + + + Author + + + | Author | [facility] | + + + | Organization | [facility] | + + + | Address | Unknown | + + + | Phone | Unavailable | + + + Support + + +---------+ + | Name | Relationship | Address | Phone | + + +---------+ + | Vinicio Garcia | ECON | Unknown | | + + +---------+ + Care Team Providers + +------+ + | Care Rural Carrier Name | Role | Phone | + [...] [address] | | | | | | [place], [place] | | | | | | [address] | | | +--------+ + + + [...]
--- OUTSIDE RECORDS SUMMARY | ~2019-06-11 | XMS | Encounter Summary ---
Demographics + + + | Address | [address] | | | [place] [address] | + + + | Home Phone | | + + + | Preferred Language | Unknown | + + + | Marital Status | | + + + | Latter-Day Affiliation | Unknown | + + + | Race | White | + + + | Ethnic Group | Not or | + + + Author + + + | Author | [facility] | + + + | Organization | [facility] | + + + | Address | Unknown | + + + | Phone | Unavailable | + + + Support + + +---------+ + | Name | Relationship | Address | Phone | + + +---------+ + | Vinicio Garcia | ECON | Unknown | | + + +---------+ + Care Team Providers + +------+ + | Care Cultural Centre Manager Name | Role | Phone | + +------+ + PCP | Unavailable | + +------+ + Encounter Details +--------+ + + + + | Date | Type | Department | Care Team | Description | +--------+ + + + + | 04/02/ | Results | [facility] | Maricarmen Mukherjee, | | | 2003 | Only | [place] [address] [place] [address] | | | | | [address] | | | | | | Mailcode: [id number] | | | | | | Phys[facility] | | | | | | [place], [place] | | | | | | [address] | | | | | | [phone] | | | +--------+ + + + [...] | | | | | texture and cmametp96.5 | | | | | | and [...] | | + +---------+ + + | [facility] | | | | | RADIOLOGY | | | | + +---------+ + + documented in this encounter Visit Diagnoses Not on filedocumented in this encounter"
--- OUTSIDE RECORDS SUMMARY | ~2019-06-11 | XMS | Encounter Summary ---
Demographics + + + | Address | [address] | | | [place] [address] | + + + | Home Phone | | + + + | Preferred Language | Unknown | + + + | Marital Status | | + + + | Gnosticism Affiliation | Unknown | + + + | Race | White | + + + | Ethnic Group | Not or | + + + Author + + + | Author | [facility] | + + + | Organization | [facility] | + + + | Address | Unknown | + + + | Phone | Unavailable | + + + Support + + +---------+ + | Name | Relationship | Address | Phone | + + +---------+ + | Vinicio Garcia | ECON | Unknown | | + + +---------+ + Care Team Providers + +------+ + | Care Stroboroma Operator Name | Role | Phone | + +------+ + | Kenneth Duncan DO | PCP | | + +------+ + Encounter Details +--------+ + + + + | Date | Type | Department | Care Team | Description | +--------+ + + + + | 12/09/ | Ancillary | [facility] | | | | 2005 | Registratio | Practice [address] | | | | | n | [facility] | | | | | | [place] [address] | | | | | | [phone] | | | +--------+ + + + [...]
--- OUTSIDE RECORDS SUMMARY | ~2019-06-11 | XMS | Encounter Summary ---
Demographics + + + | Address | [address] | | | [place] [address] | + + + | Home Phone | | + + + | Preferred Language | Unknown | + + + | Marital Status | | + + + | Jewish Affiliation | 1061 | + + + | Race | Unknown | + + + | Ethnic Group | Unknown | + + + Author + + + | Author | [facility] | | | and Jes[place] | + + + | Organization | [facility] | | | and [...] Team Providers + +------+ + | Care Unit Director Name | Role | Phone | [...] MEDICAL [facility] [address] | [place] [address] | | | | | [address] [place], | [phone] | | | | | [place] [address] | | | | | | [phone] | | | +--------+ + + + [...]
--- OUTSIDE RECORDS SUMMARY | ~2019-06-11 | XMS | Encounter Summary ---
Demographics + + + | Address | [address] | | | [place] [address] | + + + | Home Phone | | + + + | Preferred Language | Unknown | + + + | Marital Status | | + + + | Buddhist Affiliation | 1061 | + + + | Race | Unknown | + + + | Ethnic Group | Unknown | + + + Author + + + | Author | [facility] | | | and Jesúsana | + + + | Organization | 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 She was paralyzed for a time. [...]
--- OUTSIDE RECORDS SUMMARY | ~2019-06-11 | XMS | Encounter Summary ---
Demographics + + + | Address | [address] | | | [place] [address] | + + + | Home Phone | | + + + | Preferred Language | Unknown | + + + | Marital Status | | + + + | Christianity Affiliation | Unknown | + + + | Race | White | + + + | Ethnic Group | Not or | + + + Author + + + | Author | [facility] | + + + | Organization | [facility] | + + + | Address | Unknown | + + + | Phone | Unavailable | + + + Support + + +---------+ + | Name | Relationship | Address | Phone | + + +---------+ + | Vinicio Garcia | ECON | Unknown | | + + +---------+ + Care Team Providers + +------+ + | Care Stone Finisher Name | Role | Phone | + [...] | | | | | n | [facility] | | | | | | [place] [address] | | | | | | [phone] | | | +--------+ + + + [...]
--- OUTSIDE RECORDS SUMMARY | ~2019-06-11 | XMS | Clinical Summary ---
Demographics + + + | Address | [address] | | | [place] [address] | + + + | Home Phone | | + + + | Preferred Language | Unknown | + + + | Marital Status | | + + + | Tenriism Affiliation | Unknown | + + + [...] Team Providers + +------+ + | Care Immersion Metalcleaner Name | Role | Phone | + +------+ + | Kenneth Duncan DO | PCP | | + +------+ + Source Comments ADAM is fully live on both [facility] and [facility] InPatient.Pending Sale To [facility] Allergies No Known Allergies Medications + + [...] Person | Self | [birth year] | [address] | | | al/José | | 1970 | [phone] | [place] [address] | | | jayson | | | 8 (Home) | | + +--------+ +--------+ + +
--- OUTSIDE RECORDS SUMMARY | ~2019-06-11 | XMS | Encounter Summary ---
Demographics + + + | Address | [address] | | | [place] [address] | + + + | Home Phone | | + + + | Preferred Language | Unknown | + + + | Marital Status | | + + + | Yarsani Affiliation | 1061 | + + + | Race | Unknown | + + + | Ethnic Group | Unknown | + + + Author + + + | Author | [facility] | | | and Jesúsana | + + + | Organization | [facility] | | | and [...] Team Providers + +------+ + | Care Jig And Fixture Repairer Name | Role | Phone | + [...] Medication Refill | | 2017 | | [facility] | E, DO [address] | | | | | MEDICAL CLINIC [address] | [place], [place] | | | | | [address] [place], | [address] | | | | | [place] [address] | [phone] | | | | | [phone] | | | +--------+--------+ + + + [...]
--- OUTSIDE RECORDS SUMMARY | ~2019-06-11 | XMS | Encounter Summary ---
Demographics + + + | Address | [address] | | | [place] [address] | + + + | Home Phone | | + + + | Preferred Language | Unknown | + + + | Marital Status | | + + + | Mu-Ism Affiliation | Unknown | + + + | Race | White | + + + | Ethnic Group | Not or | + + + Author + + + | Author | [facility] | + + + | Organization | [facility] | + + + | Address | Unknown | + + + | Phone | Unavailable | + + + Support + + +---------+ + | Name | Relationship | Address | Phone | + + +---------+ + | Vinicio Garcia | ECON | Unknown | | + + +---------+ + Care Team Providers + +------+ + | Care Irrigation Installation Specialist Name | Role | Phone | + [...] [address] | | | | | | [place], [place] | | | | | | [id number] | | | | | | | [...] + + | ADAM | [address] | [place] [address] | | | DERMATOPATHOLOGY | [address] | | | + + + + + documented in this encounter Visit Diagnoses Not on filedocumented in this encounter"
--- OUTSIDE RECORDS SUMMARY | ~2019-06-11 | XMS | Encounter Summary ---
Demographics + + + | Address | [address] | | | [place] [address] | + + + | Home Phone | | + + + | Preferred Language | Unknown | + + + | Marital Status | | + + + | Sikh Affiliation | 1061 | + + + | Race | Unknown | + + + | Ethnic Group | Unknown | + + + Author + + + | Author | [facility] | | | and Jesúsana | + + + | Organization | [facility] | | | and [...] Team Providers + +------+ + | Care Pin Drafting Machine Operator Name | Role | Phone [...] Medication Prior | | 2018 | | [facility] | E, DO [address] | Authorization | | | | MEDICAL CLINIC [address] | [place], [place] | (Lyrica 25 mg ) | | | | [address] [place], | [address] | | | | | [place] [address] | [phone] | | | | | [phone] | | | +--------+ + + + [...]
--- OUTSIDE RECORDS SUMMARY | ~2019-06-11 | XMS | Encounter Summary ---
Demographics + + + | Address | [address] | | | [place] [address] | + + + | Home Phone | | + + + | Preferred Language | Unknown | + + + | Marital Status | | + + + | Orthodox Affiliation | 1061 | + + + | Race | Unknown | + + + | Ethnic Group | Unknown | + + + Author + + + | Author | [facility] | | | and Jesúsana | + + + | Organization | [facility] | | | and [...] Team Providers + +------+ + | Care Stonework Tracer Name | Role | Phone | + [...] | Insurance | | 2019 | | [facility] | E, DO [address] | Authorization | | | | MEDICAL CLINIC [address] | [place], [place] | (Appeal letter ) | | | | [address] [place], | [address] | | | | | [place] [address] | [phone] | | | | | [phone] | | | +--------+ + + + [...]
--- OUTSIDE RECORDS SUMMARY | ~2019-06-11 | XMS | Encounter Summary ---
Demographics + + + | Address | [address] | | | [place] [address] | + + + | Home Phone | | + + + | Preferred Language | Unknown | + + + | Marital Status | | + + + | Christian Affiliation | 1061 | + + + | Race | Unknown | + + + | Ethnic Group | Unknown | + + + Author + + + | Author | [facility] | | | and Jesúsana | + + + | Organization | [facility] | | | and [...] Providers + +------+ + | Care C S S Representative Name | Role | Phone | [...] Medication Refill | | 2017 | | [facility] | DRUG COUNSELOR | | | | | MEDICAL CLINIC [address] | | | | | | [address]TH [place], | | | | | | [place] [address] | | | | | | [phone] | | | +--------+--------+ + + + [...]
--- OUTSIDE RECORDS SUMMARY | ~2019-06-11 | XMS | Encounter Summary ---
Demographics + + + | Address | [address] | | | [place] [address] | + + + | Home Phone | | + + + | Preferred Language | Unknown | + + + | Marital Status | | + + + | Yazidism Affiliation | 1061 | + + + | Race | Unknown | + + + | Ethnic Group | Unknown | + + + Author + + + | Author | [facility] | | | and Jesúsana | + + + | Organization | [facility] | [...] Providers + +------+ + | Care Manager Style Name | Role | Phone | + [...] + + | 04/03/ | Telephone | [place] [facility] | Kenneth Duncan | Medication Prior | | 2017 | | [facility] | E, DO [address] | Authorization | | | | MEDICAL CLINIC [address] | [place], [place] | | | | | [address] [place], | [address] | | | | | [place] [address] | [phone] | | | | | [phone] | | | +--------+ + + + [...]
--- OUTSIDE RECORDS SUMMARY | ~2019-06-11 | XMS | Encounter Summary ---
Demographics + + + | Address | [address] | | | [place] [address] | + + + | Home Phone [...] + + + | Organization | [facility] | | | and [...] Team Providers + +------+ + | Care Field Research Assistant Name | Role | Phone | + +------+ + PCP | Unavailable | + +------+ + Encounter Details +--------+ + + + + | Date | Type | Department | Care Team | Description | +--------+ + + + + | 09/06/ | Hospital | [facility] | | | | 1998 | Encounter | MED CTR EMERGENCY | | | | | | CENTER [address] | | | | | | [place] | | | | | | [address] | | | | | | [phone] | | | +--------+ + + + [...]
--- OUTSIDE RECORDS SUMMARY | ~2019-06-11 | XMS | Encounter Summary ---
Demographics + + + | Address | [address] | | | [place] [address] | + + + | Home Phone | | + + + | Preferred Language | Unknown | + + + | Marital Status | | + + + | Samaritan Affiliation | 1061 | + + + | Race | Unknown | + + + | Ethnic Group | Unknown | + + + Author + + + | Author | [facility] | | | and Jesúsana | + + + | Organization | [facility] | | | and [...] Team Providers + +------+ + | Care Control Chemist Name | Role | Phone | + [...] Medication Refill; | | 2018 | | [facility] | E, DO [address] | Medication Refill | | | | MEDICAL CLINIC [address] | [place], [place] | | | | | [address] [place], | [address] | | | | | [place] [address] | [phone] | | | | | [phone] | | | +--------+--------+ + + + [...]
--- OUTSIDE RECORDS SUMMARY | ~2019-06-11 | XMS | Encounter Summary ---
Demographics + + + | Address | [address] | | | [place] [address] | + + + | Home Phone | | + + + | Preferred Language | Unknown | + + + | Marital Status | | + + + | Christianity Affiliation | 1061 | + + + | Race | Unknown | + + + | Ethnic Group | Unknown | + + + Author + + + | Author | [facility] | | | and Jesúsana | + + + | Organization | [facility] | | | and [...] Team Providers + +------+ + | Care And Rescue Fire Fighter Crash Fire Name | Role | Phone | + [...] | | [address] [place], | [address] | | | | | [place] [address] | [phone] | | | | | [phone] | | | +--------+ + + + [...]
--- OUTSIDE RECORDS SUMMARY | ~2019-06-11 | XMS | Encounter Summary ---
Demographics + + + | Address | [address] | | | [place] [address] | + + + | Home Phone | | + + + | Preferred Language | Unknown | + + + | Marital Status | | + + + | Sabianist Affiliation | 1061 | + + + | Race | Unknown | + + + | Ethnic Group | Unknown | + + + Author + + + | Author | [facility] | | | and Jesúsana | + + + | Organization | [facility] | | | and [...] Team Providers + +------+ + | Care Egg Trayer Name | Role | Phone | + [...] | +--------+ + + + + | 06/20/ | Telephone | [place] | Kenneth Duncan | Medication Prior | | 2018 | | [facility] | E, DO [address] | Authorization | | | | MEDICAL CLINIC [address] | [place], [place] | (Lyrica 25 mg ) | | | | [address] [place], | [address] | | | | | [place] [address] | [phone] | | | | | [phone] | | | +--------+ + + + [...]
--- OUTSIDE RECORDS SUMMARY | ~2019-06-11 | XMS | Encounter Summary ---
Demographics + + + | Address | [address] | | | [place] [address] | + + + | Home Phone | | + + + | Preferred Language | Unknown | + + + | Marital Status | | + + + | Mosque Affiliation | 1061 | + + + | Race | Unknown | + + + | Ethnic Group | Unknown | + + + Author + + + | Author | [facility] | | | and Jesúsana | + + + | Organization | [facility] | | | and Jesúsana [...] Providers + +------+ + | Care Manager Entry Name | Role | Phone | + [...] | | | [address] [place], | [address] | | | | | [place] [address] | [phone] | | | | | [phone] | | | +--------+ + + + [...]
--- OUTSIDE RECORDS SUMMARY | ~2019-06-11 | XMS | Encounter Summary ---
Demographics + + + | Address | [address] | | | [place] [address] | + + + | Home Phone | | + + + | Preferred Language | Unknown | + + + | Marital Status | | + + + | Restoration Affiliation | 1061 | + + + | Race | Unknown | + + + | Ethnic Group | Unknown | + + + Author + + + | Author | [facility] | | | and Jesúsana | + + + | Organization | [facility] | | | and Jesúsana [...] Team Providers + +------+ + | Care Wirer Name | Role | Phone | + [...] | | | MEDICAL CLIN[facility] [address] | [place], [place] | Labs Reminder) | | | | [place], | [address] | | | | | [place] [address] | [phone] | | | | | [phone] | | | +--------+ + + + [...]
--- OUTSIDE RECORDS SUMMARY | ~2019-06-11 | XMS | Encounter Summary ---
Demographics + + + | Address | [address] | | | [place] [address] | + + + | Home Phone | | + + + | Preferred Language | Unknown | + + + | Marital Status | | + + + | Adventism Affiliation | 1061 | + + + | Race | Unknown | + + + | Ethnic Group | Unknown | + + + Author + + + | Author | [facility] | | | and Jesúsana | + + + | Organization | [facility] | | | and [...] Team Providers + +------+ + | Care Hot Punch Press Operator Name | Role | Phone | [...] Medication Prior | | 2017 | | [facility] | E, DO [address] | Authorization | | | | MEDICAL CLINIC [address] | [place], [place] | (Lyrica 25mg ); | | | | [address] [place], | [address] | Medication Prior | | | | [place] [address] | [phone] | Authorization (Pt | | | | [phone] | | has question about | | [...]
--- OUTSIDE RECORDS SUMMARY | ~2019-06-11 | XMS | Encounter Summary ---
Demographics + + + | Address | [address] | | | [place] [address] | + + + | Home Phone | | + + + | Preferred Language | Unknown | + + + | Marital Status | | + + + | Islam Affiliation | 1061 | + + + | Race | Unknown | + + + | Ethnic Group | Unknown | + + + Author + + + | Author | [facility] | | | and Jesúsana | + + + | Organization | [facility] | | | and Jesúsana [...] Team Providers + +------+ + | Care Family Nurse Name | Role | Phone | + +------+ + PCP | Unavailable | + +------+ + Encounter Details +--------+ + + + + | Date | Type | Department | Care Team | Description | +--------+ + + + + | 10/23/ | Hospital | [facility] | | | | 1995 | Encounter | MED CTR EMERGENCY | | | | | | CENTER [address] | | | | | | [place] | | | | | | [address] | | | | | | [phone] | | | +--------+ + + + [...]
--- OUTSIDE RECORDS SUMMARY | ~2019-06-11 | XMS | Encounter Summary ---
Demographics + + + | Address | [address] | | | [place] [address] | + + + | Home Phone | | + + + | Preferred Language | Unknown | + + + | Marital Status | | + + + | Holiness Affiliation | 1061 | + + + | Race | Unknown | + + + | Ethnic Group | Unknown | + + + Author + + + | Author | [facility] | | | and Jesúsana | + + + | Organization | [facility] | | | and [...] Team Providers + +------+ + | Care Primary Care Nurse Name | Role | Phone | [...] | lab reminder) | | | | [facility], | [address] | | | | | [place] [address] | [phone] | | | | | [phone] | | | +--------+ + + + [...]
--- OUTSIDE RECORDS SUMMARY | ~2019-06-11 | XMS | Encounter Summary ---
Demographics + + + | Address | [address] | | | [place] [address] | + + + | Home Phone | | + + + | Preferred Language | Unknown | + + + | Marital Status | | + + + | Pentecostal Affiliation | 1061 | + + + | Race | Unknown | + + + | Ethnic Group | Unknown | + + + Author + + + | Author | [facility] | | | and Jesúsana | + + + | Organization | [facility] | | [...] Team Providers + +------+ + | Care Communications Editor Name | Role | Phone | + [...] Description | +--------+--------+ + + + | 03/13/ | Refill | [place] [facility] | Kenneth Duncan | Medication Refill | | 2018 | | [facility] | E, DO [address] | | | | | MEDICAL CLINIC [address] | [place], [place] | | | | | [address] [place], | [address] | | | | | [place] [address] | [phone] | | | | | [phone] | | | +--------+--------+ + + + [...] | Hypoglycemia Hypoglycemia, unspecified | + + | Fibromyalgia Mylagia and myositis, unspecified | + + documented in this encounter"
--- OUTSIDE RECORDS SUMMARY | ~2019-06-11 | XMS | Encounter Summary ---
Demographics + + + | Address | [address] | | | [place] [address] | + + + | Home Phone | | + + + | Preferred Language | Unknown | + + + | Marital Status | | + + + | Restoration Affiliation | 1061 | + + + | Race | Unknown | + + + | Ethnic Group | Unknown | + + + Author + + + | Author | [facility] | | | and Jesúsana | + + + | Organization | [facility] | | | and [...] Team Providers + +------+ + | Care Deputy Director Name | Role | Phone | [...] Medication Prior | | 2018 | | [facility] | E, DO [address] | Authorization | | | | MEDICAL CLINIC [address] | [place], [place] | (Lyrica 25 mg ) | | | | [address] [place], | [address] | | | | | [place] [address] | [phone] | | | | | [phone] | | | +--------+ + + + [...]
--- OUTSIDE RECORDS SUMMARY | ~2019-06-11 | XMS | Encounter Summary ---
Demographics + + + | Address | [address] | | | [place] [address] | + + + | Home Phone | | + + + | Preferred Language | Unknown | + + + | Marital Status | | + + + | Restorationism Affiliation | 1061 | + + + | Race | Unknown | + + + | Ethnic Group | Unknown | + + + Author + + + | Author | [facility] | | | and Jesúsana | + + + | Organization | [facility] | | | and [...] Team Providers + +------+ + | Care Ecommerce Project Manager Name | Role | Phone | [...] [place] | | | | | | [address] | [address] | | | | | | Phone: | Phone: | | | | | | [phone] | [phone] | | | | | | Fax: | Fax: | | | | | | [phone] | [phone] | + + + + + + [...] Hypertension, | | 2019 | Visit | [facility] | E, DO [address] | unspecified type | | | | MEDICAL CLINIC [address] | [place], [place] | (Primary Dx); Well | | | | [address] [place], | [address] | woman exam with | | | | [place] [address] | [phone] | routine | | | | [phone] | | gynecological exam; | | | [...] This documentation prepared by Dennys Reed, medical equipment repair technician. All aspects of this chart revi ewed [...] - 1.030 | [place] | | | [place] | | | [place] | | | [...] + + | [place] [facility] | [address] | [place] [address] | [phone] | | HOSPITAL LABORATORY | | | [...] | have received in error, please call [phone]. PERFORMING | | | LABORATORY: Technical preparation was performed by [employer] | | | Diagnostics, [address] [place] [address] | | | (Substation Inspector: Aristeo Leroy D.O.; IA#: [id number]). | | | Diagnostician: Paulo VILLALBA([facility]) Poly Operator Electronically | | | Signed 04/06/2019 [...]
--- OUTSIDE RECORDS SUMMARY | ~2019-06-11 | XMS | Encounter Summary ---
Demographics + + + | Address | [address] | | | [place] [address] | + + + | Home Phone [...] Providers + +------+ + | Care Dental Hygienist Name | Role | Phone | + +------+ + PCP | Unavailable | + +------+ + Encounter Details +--------+ + + + + | Date | Type | Department | Care Team | Description | +--------+ + + + + | 12/02/ | Results | | Other, Faculty | | | 2006 | Only | | [phone] | | +--------+ + + + + [...] slide, | | | | | | [id number] returned to | | | | | [...] ADAM | [address], [address] | [place] [address] | | | DERMATOPATHOLOGY | Roberto Lee | | | + + + + + documented in this encounter Visit Diagnoses Not on filedocumented in this encounter"
--- OUTSIDE RECORDS SUMMARY | ~2019-06-11 | XMS | Encounter Summary ---
Demographics + + + | Address | [address] | | | [place] [address] | + + + | Home Phone | | + + + | Preferred Language | Unknown | + + + | Marital Status | | + + + | Latter Day Affiliation | 1061 | + + + | Race | Unknown | + + + | Ethnic Group | Unknown | + + + Author + + + | Author | [facility] | | | and Jesúsana | + + + | Organization | [facility] | | | and [...] Team Providers + +------+ + | Care Kettle Girl Name | Role | Phone | + [...] Fibromyalgia | | 2018 | Visit | [facility] | E, DO [address] | (Primary Dx); | | | | MEDICAL CLINIC [address] | [place], [place] | Chronic pain | | | | [address] [place], | [address] | syndrome; Left hip | | | | [place] [address] | [phone] | pain; Trochanteric | | | | [phone] | | bursitis of left | | [...] encounter Progress Notes Kenneth Duncan DO - 02/27/2018 2:20 PM PDT [...] | + +--------+ + + + | [place] [address] | Routin | 02/27/2018 | Left hip [...] tolerated well. 0.5cc (20 mg) [place] [address] | | | 1049 lot [id number] exp 07/2019 and 2cc 1[place] [address] 27 | | | LOT [id number] EXP 09/20 injected into greater trochanter of [...]
--- OUTSIDE RECORDS SUMMARY | ~2019-06-11 | XMS | Encounter Summary ---
Demographics + + + | Address | [address] | | | [place] [address] | + + + | Home Phone | | + + + | Preferred Language | Unknown | + + + | Marital Status | | + + + | Methodist Affiliation | 1061 | + + + | Race | Unknown | + + + | Ethnic Group | Unknown | + + + Author + + + | Author | [facility] | | | and Jesúsana | + + + | Organization | [facility] | | | and [...] Team Providers + +------+ + | Care Ruffling Hemmer Automatic Name | Role | Phone | + [...] Medication Refill | | 2018 | | [facility] | E, DO [address] | | | | | MEDICAL CLINIC [address] | [place], [place] | | | | | [address] [place], | [address] | | | | | [place] [address] | [phone] | | | | | [phone] | | | +--------+--------+ + + + [...]
[~2019-06-11 15:10] MED LIST: ASPIRIN325 MG PO; CHONDROITIN SU250 MG PO; CYCLOBENZAPRINE5 MG PO; DILAUDID4 MG PO; FIBER THERAPY0.52 GM PO; FIBER THERAPY500 MG PO; FLEXERIL5 MG PO; GLUCOSAMINE CH1 EAC2; GLUCOSAMINE CH1 EACH PO; GLUCOSAMINE1000 MG PO; IRON27 MG PO; LOVASTATIN20 MG PO; LYSINE500 MG PO; MELOXICAM15 MG PO; METFORMIN HCL500 MG PO; MIRALAX17 GM PO; MIRAPEX0.125 MG PO; OMEPRAZOLE20 MG PO; ONE DAILY FOR1 EACH PO; OXYCODONE HCL5 M1 PO; OXYCODONE HCL5 MG PO; TRI-SPRINTEC1 EACH PO; ULTRAM50 MG PO; VITAMIN C500 M1 PO; VITAMIN D5000 UNIT PO; XARELTO10 MG PO
[2019-06-11] MEDS ORDERED: GABAPENTIN100 MG PO (15:34)
[2019-06-11] MEDS ORDERED: NORCO 5-325 TA1 EACH PO (18:09)
== END 2019-06-11 18:22 | disposition home or self-care (01) ==
LOC: ED 15:10
DX: S16.1XXA Strain of muscle, fascia and tendon at neck level, initial encounter (principal); S80.02XA Contusion of left knee, initial encounter; S20.211A Contusion of right front wall of thorax, initial encounter; V49.9XXA Car occupant (driver) (passenger) injured in unspecified traffic accident, initial encounter; E11.9 Type 2 diabetes mellitus without complications; Z91.040 Latex allergy status; Z79.899 Other long term (current) drug therapy
CPT/HCPCS: 70450; 71260; 72125; 73560; 74177; 80053; 82150; 82550; 83690; 85025; 86850; 86900; 86901; 96361; 99284-25; G0480; J1885; J2270; J2405; J7030; Q9967

== ENCOUNTER 2023-02-20 10:36 | Emergency (ER) | payer OTHER ==
[~2023-02-20] VITALS: Ht 167.6 cm; Wt 97.3 kg
[~2023-02-20 10:36] MED LIST changes: +GABAPENTIN100 MG PO; +NORCO 5-325 TA1 EACH PO
[2023-02-20 11:04] LABS: BASOPHILS 0.5 % (0-2); EOSINOPHILS 0.5 % (0-6); HEMATOCRIT 46.1 % (35.0-50.0); HEMOGLOBIN 15.3 g/dL (12.0-18.0); LYMPHOCYTES 36.7 % (24-44); MCH 28.1 (27-36); MCHC 33.1 g/dl (30-36); MCV 84.9 fl (81-99); NEUTROPHILS 57.3 % (39-80); PLATELET COUNT 257 K/uL (140-440); RBC 5.43 M/ul (4.3-5.7); RDW 13.2 (10.5-15.0)
[2023-02-20 11:14] LABS: INR 0.97 (0.80-1.30); PROTIME 12.5 Sec (11.2-14.2)
[2023-02-20 11:16] LABS: PARTIAL THROMBOPLASTIN TIME 26.2 Sec (22.9-41.3)
[2023-02-20 11:18] LABS: ALBUMIN 4.1 g/dL (3.4-5.0); ALBUMIN/GLOBULIN RATIO 1.03 (1.1-2.4); ALKALINE PHOSPHATASE 117 U/L (46-116); ALT (SGPT) 35 U/L (14-59); ANION GAP 14.3 (7-21); AST (SGOT) 23 U/L (15-37); BILIRUBIN, TOTAL 0.6 ng/dL (0.2-1.0); BUN/CREATININE RATIO 15.47 (6.0-28.6); CALCIUM 9.9 mg/dL (8.5-10.1); CARBON DIOXIDE 28 mmol/L (21-32); CHLORIDE 103 mmol/L (98-107); CREATININE, SERUM 0.84 mg/dL (0.55-1.02); GLOMERULAR FILTRATION RATE,EST 82 mL/min (>60); POTASSIUM 4.3 mmol/L (3.5-5.1); PROTEIN, TOTAL 8.1 g/dL (6.4-8.2); UREA NITROGEN 13 mg/dL (7-18)
[2023-02-20] MEDS ORDERED: CYCLOBENZAPRINE10 MG PO (13:14)
[2023-02-20 13:30] VITALS: BP 116/66
--- NOTE | 2023-02-20 21:12 | EKG ---
[facility] [address] [place] [address] Signed Normal sinus rhythm Normal ECG No previous ECGs available Confirmed by Myra Smith MD () on 02/20/2023 9:12:40 PM Electronically Signed By: MYRA SMITH MD 02/20/232111 PATIENT NAME: TIFFANIE OCHOA Electrocardiogram DATE OF : 66 PHYSICIAN: MYRA SMITH MD REPORT #: [id number] REPORT IS CONFIDENTIAL AND NOT TO BE RELEASED WITHOUT AUTHORIZATION
== END 2023-02-20 13:30 | disposition home or self-care (01) ==
LOC: ED 10:36
PROVIDERS: Family Medicine
DX: R07.89 Other chest pain (principal); E11.9 Type 2 diabetes mellitus without complications; Z91.040 Latex allergy status; Z79.899 Other long term (current) drug therapy
CPT/HCPCS: 36415; 71045; 80053; 83735; 83880; 84484; 85025; 85379; 85610; 85730; 93005; 93010; J2270

== ENCOUNTER 2025-05-01 22:33 | Emergency (ER) | payer OTHER ==
[~2025-05-01] VITALS: Ht 152.4 cm; Wt 94.0 kg
[~2025-05-01 22:33] MED LIST changes: +CYCLOBENZAPRINE10 MG PO
[2025-05-01 22:58] LABS: BASOPHILS 0.4 % (0.1-1.2); EOSINOPHILS 0.6 % (0.7-5.8); LYMPHOCYTES 38.6 % (19.3-51.7); MCH 28.5 PG (25.6-32.2); MCHC 33.2 g/dL (32.2-35.5); MCV 85.9 fL (79.4-94.8); MONOCYTES 5.9 % (4.7-12.5); NEUTROPHILS 54.3 % (34.0-71.1); RBC 5.05 M/uL (3.93-5.22)
[2025-05-01] MEDS ORDERED: MORPHINE SULFATE 4 MG/ML VIAL IV ONE (23:00)
[2025-05-01] MEDS ORDERED: KETOROLAC TROMETHAMINE 15 MG/ML VIAL IV ONE (23:00)
[2025-05-01] MEDS ORDERED: LACTATED RINGER'S 1,000 ML IV ONE (23:00)
[2025-05-01 23:14] LABS: ALT (SGPT) 26.0 U/L (14-59); AST (SGOT) 22.0 U/L (15-37); GLOMERULAR FILTRATION RATE,EST 53.0 mL/min (>60); PROTEIN, TOTAL 7.9 g/dL (6.4-8.2); UREA NITROGEN 18.0 mg/dL (7-18)
[2025-05-01] MEDS ORDERED: HYDROCODONE BIT/ACETAMINOPHEN 5/325 MG 1 TAB HOME.PACK PO ONE (23:45)
[2025-05-01] MEDS ORDERED: TAMSULOSIN HCL 0.4 MG CAP PO ONE (23:45)
[2025-05-01 23:52] LABS: BLOOD/HGB, URINE LARGE (Negative); KETONE, URINE SMALL (Negative); LEUK ESTERASE, URINE LARGE (negative); NITRITE, URINE POSITIVE (negative)
[2025-05-01] MEDS ORDERED: HYDROCODON-ACE1 EA10 PO (23:56)
[2025-05-01] MEDS ORDERED: FLOMAX0.4 MG PO (23:56)
[2025-05-01 23:57] LABS: EPITHELIAL CELLS, URINE SQUAMOUS 1+ /lpf (0-1+)
[2025-05-01 23:58] LABS: BACTERIA, URINE 2+ /hpf (negative); CASTS, URINE NONE SEEN \\lpf; CRYSTALS, URINE NONE SEEN (0-1+); REFLEX CULTURE, URINE Yes (No)
[2025-05-02] MEDS ORDERED: CEPHALEXIN500 M1 PO (00:02)
[2025-05-02] MEDS ORDERED: CEPHALEXIN MONOHYDRATE 500 MG HOME.PACK PO ONE (00:15)
[2025-05-02] MEDS ORDERED: MORPHINE SULFATE 4 MG/ML VIAL IV ONE (00:30)
[2025-05-02 00:52] VITALS: BP 118/66
== END 2025-05-02 00:55 | disposition home or self-care (01) ==
LOC: ED 22:33
PROVIDERS: Internal Medicine
DX: N13.2 Hydronephrosis with renal and ureteral calculous obstruction (principal); E11.9 Type 2 diabetes mellitus without complications; Z91.040 Latex allergy status; Z79.899 Other long term (current) drug therapy
CPT/HCPCS: 36415; 74176; 80053; 81001; 85025; 87077; 87088; 87186; 96374; 96375; 96376; 99284-25; A9270; J1885; J2270; J2405; J7121

== ENCOUNTER 2025-05-17 16:25 | Emergency (ER) | payer OTHER ==
[~2025-05-17] VITALS: Ht 167.6 cm; Wt 96.2 kg
[~2025-05-17 16:25] MED LIST changes: +CEPHALEXIN500 M1 PO; +FLOMAX0.4 MG PO; +HYDROCODON-ACE1 EA10 PO
--- OUTSIDE RECORDS SUMMARY | 2025-05-17 16:29 | XMS ---
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 E.D. VISIT COUNT (12 MO.) 2 ADILENE Malcolm TOTAL 2 NOTE: Visits indicate total known visits. ED/UCC VISIT TRACKING (12 MO.) 05/17/2025 16:29 AD[place]ENE [place] TYPE: Emergency COMPLAINT: - LEFT LEG POSSIBLE CLOT 05/01/2025 22:34 ADILENE [place] TYPE: Emergency COMPLAINT: - FLANK PAIN DIAGNOSES: - Flank pain, left side - Hydronephrosis with renal and ureteral calculous obstruction - Latex allergy status - Other intermission coordinator (current) drug therapy - Type 2 diabetes mellitus without complications INPATIENT VISIT TRACKING (12 MO.) No inpatient visits to display in this time frame [email or web address]
[2025-05-17 17:57] VITALS: BP 140/97
== END 2025-05-17 17:54 | disposition home or self-care (01) ==
LOC: ED 16:25
DX: M25.562 Pain in left knee (principal); E11.9 Type 2 diabetes mellitus without complications; Z79.899 Other long term (current) drug therapy; Z91.040 Latex allergy status
CPT/HCPCS: 99283-25